=== PATIENT | female | born 1985 | race Caucasian/White ===

== ENCOUNTER 2018-07-21 12:20 | Observation (INO) | payer BC ==
--- NOTE | 2018-07-21 12:30 | EDM.PDOC ---
ED HPI GENERAL MEDICAL PROBLEM - General Chief Complaint: Genitourinary Problem Stated Complaint: UTI Time Seen by Provider: 07/21/18 12:21 Source of Information: Reports: Patient History Limitations: Reports: No Limitations - History of Present Illness INITIAL COMMENTS - FREE TEXT/NARRATIVE: HISTORY AND PHYSICAL: History of present illness: Patient is a 33-year-old female who presents to the emergency room with complaints of right flank pain and dysuria. She was seen by Myla Ramey on 07/18/18 for a routine OB evaluation. Patient is 21 weeks, 4 days gestation. She did have routine lab work along with an ultrasound. She states during this time she was told she had a urinary tract infection. 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 Last night she did have increased dysuria and low back pain. Woke up this morning with increased pain to right flank, dysuria, and nausea. She denies any fever, chills, chest pain, shortness of breath or cough. Denies any abdominal pain/pelvic pain, vaginal bleeding or discharge. Denies any vomiting, diarrhea, constipation. , P: 6. Vaginal Deliveries Review of systems: As per history of present illness and below otherwise all systems reviewed and negative. Past medical history: As per history of present illness and as reviewed below otherwise noncontributory. Surgical history: As per history of present illness and as reviewed below otherwise noncontributory. Social history: See social history for further information Family history: As per history of present illness and as reviewed below otherwise noncontributory. Physical exam: General: Well-developed and well-nourished 33-year-old female. Alert and oriented. Nontoxic appearing and in no acute distress. HEENT: Atraumatic, normocephalic, pupils equal and reactive bilaterally, negative for conjunctival pallor or scleral icterus, mucous membranes moist, TMs normal bilaterally, throat clear, neck supple, nontender, trachea midline. No drooling or trismus noted. No meningeal signs. No hot potato voice noted. Lungs: Clear to auscultation, breath sounds equal bilaterally, chest nontender. Heart: S1S2, regular rate and rhythm without overt murmur Abdomen: Soft, abdomen, nontender. No RLQ tenderness or rebound tenderness. Negative for masses or hepatosplenomegaly. Mild right sided costovertebral tenderness. Pelvis: Stable nontender. Genitourinary: Deferred. Rectal: Deferred. Skin: Intact, warm, dry. No lesions or rashes noted. Extremities: Atraumatic, negative for cords or calf pain. Neurovascular unremarkable. Neuro: Awake, alert, oriented. Cranial nerves II through XII unremarkable. Cerebellum unremarkable. Motor and sensory unremarkable throughout. Exam nonfocal. Notes: Ultrasound on 07/18/2018: Single active IUP with transverse fetus. No abnormalities were identified. Current FHT: 160-170's. Vital signs stable. OB has come down to evaluate patient ; per their protocol. 1245: Myla Ramey was consulted on this case. I did tell her about the patient's presentation and my concern of maybe a possible early pyelonephritis that she does have pain to the right flank and her diagnosis of UTI. We'll give her Rocephin 1 g and a Percocet, with Myla Ramey's approval. Patient is aware and agreeable as well. Lab results are pending. Patient does have an elevated white count, she states she does feel somewhat improved after the IV fluids and Rocephin. Concerned of her generalized headache , rates 3 out of 10. Ultrasound shows mild to moderate right hydronephrosis. No obstructing stones are visualized. Left kidney is unremarkable. Appendix is not visualized, but there is no fluid collection in the right lower quadrant. She also has no right lower quadrant tenderness with palpation nor rebound tenderness. Dr Patel was consulted on this patient, he declines taking this patient and would like OBGYN to manage this patient's care. Myla Ramey was updated on this patient, she is agreeable to observing this patient on [facility] for further evaluation and management. She states she will consult Dr. Antonia lopez cool also be involved in the patient's care. Patient is agreeable to staying overnight for further IV fluids and antibiotics. She offers no current complaints at this time. Vital signs are stable. Diagnostics: CBC, CMP, UA, Limited US Therapeutics: IV fluids, Zofran, Rocephin IV, Percocet Impression: Right Pyelonephritis, 2nd trimester Headache Plan: Observation admission to Med/Surg Definitive disposition and diagnosis as appropriate pending reevaluation and review of above. Right back Pain Score (Numeric/FACES): 10 - Related Data Allergies Allergy/AdvReac Type Severity Reaction Status Date / Time No Known Allergies Allergy Verified 07/21/18 12:38 Home Meds: Home Meds . [No Known Home Meds] 07/21/18 [History] ED ROS GENERAL - Review of Systems Review Of Systems: ROS reveals no pertinent complaints other than HPI. ED EXAM, RENAL/ - Physical Exam Exam: See Below (See dictation) Course - Vital Signs Last Recorded V/S: Last Vital Signs Temp 98.3 F 07/21/18 12:38 Pulse 114 H 07/21/18 12:38 Resp 18 07/21/18 12:38 BP 129/70 07/21/18 12:38 Pulse Ox 98 07/21/18 12:38 - Orders/Labs/Meds Orders: Active Orders 24 hr Category Date Time Status Admission Status [Patient Status] [ADT] Stat ADT 07/21/18 15:07 Active Sodium Chloride 0.9% [Normal Saline] 1,000 ml Med 07/21/18 15:09 Active IV STAT Medication Orders Sodium Chloride (Normal Saline) 1,000 mls @ 125 mls/hr IV STAT ONE Stop: 07/21/18 23:08 Labs: Laboratory Tests 07/21/18 07/21/18 07/21/18 Range/Units 12:42 12:42 12:42 WBC 17.70 H (4.0-11.0) K/uL RBC 4.26 L (4.30-5.90) M/uL Hgb 12.9 (12.0-16.0) g/dL Hct 38.2 (36.0-46.0) % MCV 89.7 (80.0-98.0) fL MCH 30.3 (27.0-32.0) pg MCHC 33.8 (31.0-37.0) g/dL RDW Std Deviation 43.2 (28.0-62.0) fl RDW Coeff of Berta 13 (11.0-15.0) % Plt Count 325 (150-400) K/uL MPV 9.20 (7.40-12.00) fL Neut % (Auto) 81.7 H (48.0-80.0) % Lymph % (Auto) 10.6 L (16.0-40.0) % [place] % (Auto) 7.5 (0.0-15.0) % Eos % (Auto) 0.1 (0.0-7.0) % Baso % (Auto) 0.1 (0.0-1.5) % Neut # (Auto) 14.5 H (1.4-5.7) K/uL Lymph # (Auto) 1.9 (0.6-2.4) K/uL [place] # (Auto) 1.3 H (0.0-0.8) K/uL Eos # (Auto) 0.0 (0.0-0.7) K/uL Baso # (Auto) 0.0 (0.0-0.1) K/uL Nucleated RBC % 0.0 /100WBC Nucleated RBCs # 0 K/uL Sodium 135 L (136-145) mmol/L Potassium 3.6 (3.5-5.1) mmol/L Chloride 100 (98-107) mmol/L Carbon Dioxide 23.7 (21.0-32.0) mmol/L BUN 10 (7.0-18.0) mg/dL Creatinine 0.6 (0.6-1.0) mg/dL Est Cr Clr Drug Dosing 124.85 mL/min Estimated GFR (MDRD) > 60.0 ml/min Glucose 89 (74-106) mg/dL Calcium 10.1 (8.5-10.1) mg/dL Total Bilirubin 0.5 (0.2-1.0) mg/dL AST 8 L (15-37) IU/L ALT 20 (14-63) IU/L Alkaline Phosphatase 111 (46-116) U/L Total Protein 8.2 (6.4-8.2) g/dL Albumin 2.9 L (3.4-5.0) g/dL Globulin 5.3 H (2.6-4.0) g/dL Albumin/Globulin Ratio 0.6 L (0.9-1.6) Urine Color YELLOW Urine Appearance CLEAR Urine pH 6.0 (5.0-8.0) Ur Specific [place] 1.010 (1.001-1.035) Urine Protein NEGATIVE (NEGATIVE) mg/dL Urine Glucose (UA) NEGATIVE (NEGATIVE) mg/dL Urine Ketones NEGATIVE (NEGATIVE) mg/dL Urine Occult Blood TRACE-INTACT H (NEGATIVE) Urine Nitrite POSITIVE H (NEGATIVE) Urine Bilirubin NEGATIVE (NEGATIVE) Urine Urobilinogen 0.2 (<2.0) EU/dL Ur Leukocyte Esterase SMALL H (NEGATIVE) Urine RBC 0-2 (0-2/HPF) Urine WBC 3-6 (0-5/HPF) Ur Epithelial Cells FEW (NONE-FEW) Urine Bacteria FEW (NEGATIVE) Meds: Medications Generic Name Dose Route Start Last Admin Trade Name Freq PRN Reason Stop Dose Admin Sodium Chloride 1,000 mls @ 125 mls/hr 07/21/18 15:09 Normal Saline IV 07/21/18 23:08 STAT ONE Discontinued Medications Generic Name Dose Route Start Last Admin Trade Name Freq PRN Reason Stop Dose Admin Acetaminophen 500 mg 07/21/18 14:57 Tylenol Extra Strength PO 07/21/18 14:58 ONETIME ONE Sodium Chloride 1,000 mls @ 999 mls/hr 07/21/18 12:32 07/21/18 12:55 Normal Saline IV 07/21/18 13:32 999 mls/hr STAT ONE Administration Ceftriaxone Sodium/Dextrose 1 50 mls @ 100 mls/hr 07/21/18 12:44 07/21/18 13: 07 gm/ Premix IV 07/21/18 13:13 100 mls/hr ONETIME ONE Administration Sodium Chloride 500 mls @ 999 mls/hr 07/21/18 15:00 Normal Saline IV STAT SALVATORE Ondansetron HCl 4 mg 07/21/18 12:38 07/21/18 12:56 Zofran IVPUSH 07/21/18 12:39 4 mg ONETIME ONE Administration Oxycodone/Acetaminophen 1 tab 07/21/18 12:44 07/21/18 13:07 Percocet 325-5 Mg PO 07/21/18 12:45 1 tab ONETIME ONE Administration Departure - Departure Time of Disposition: 15:21 Disposition: Refer to Observation Clinical Impression: Pyelonephritis affecting in second trimester Headache Qualifiers: Headache type: unspecified Headache chronicity pattern: acute headache Intractability: not intractable Qualified Code(s): R51 - Headache - Discharge Information Referrals: PCP,Unknown [Primary Care Provider] - Forms: ED Department Discharge - My Orders Last 24 Hours: My Active Orders 07/21/18 15:07 Admission Status [Patient Status] [ADT] Stat 07/21/18 15:09 Sodium Chloride 0.9% [Normal Saline] 1,000 ml IV STAT - Assessment/Plan Last 24 Hours: My Active Orders 07/21/18 15:07 Admission Status [Patient Status] [ADT] Stat 07/21/18 15:09 Sodium Chloride 0.9% [Normal Saline] 1,000 ml IV STAT
[2018-07-21] MEDS ORDERED: Sodium Chloride 0.9% 1,000 ML IV ONE ×2 (12:32→15:09)
[2018-07-21] MEDS ORDERED: Ondansetron 4 MG/2 ML SDV IVPUSH ONE (12:38)
[2018-07-21] MEDS ORDERED: cefTRIAXone 1 GM in Premix Bag 1 BAG IV ONE (12:44)
[2018-07-21] MEDS ORDERED: Acetaminophen/oxyCODONE 325-5 MG Tab PO ONE (12:44)
[2018-07-21 13:58] LABS: CHLORIDE,CL 100 mmol/L (98-107); SODIUM,NA 135 mmol/L (136-145)
--- NOTE | 2018-07-21 14:55 | US ---
CLINICAL HISTORY: Right flank pain right lower quadrant pain 21 weeks FINDINGS: The patient`s liver is of normal size and has uniform echogenicity. There is a normal appearance of the hepatic IVC and proximal abdominal aorta. There is no evidence of ascites. The gallbladder is of normal size and there is no evidence of intraluminal stones or sludge. The gallbladder wall measures 2 mm in thickness. The common bile duct is of normal size and measures 3 mm in diameter at the level of the denzel hepatis. The pancreas appears normal.The right kidney measures 13.2 cm in length. Left kidney measures 10.7 cm. Mild to moderate right-sided hydronephrosis. No obstructing stones are visualized. Left kidney appears unremarkable. No hydronephrosis. Left ureteral jet visualized. Right ureter is not visualized. Appendix is not seen. No fluid collections in the right lower quadrant. IMPRESSION: 1. Mild to moderate right hydronephrosis. No obstructing stones are visualized. Left kidney is unremarkable. Small left ureteral jet visualized right ureteral jet is not visualized 2. No fluid collections visualized in right lower quadrant. Appendix is not visualized. Dictated by Sarahi Olivas MD @ Jul 21 2018 2:48PM Signed by Dr. Sarahi Olivas @ Jul 21 2018 2:53PM
[2018-07-21] MEDS ORDERED: Acetaminophen 500 MG Tab PO ONE (14:57)
[2018-07-21] MEDS ORDERED: Sodium Chloride 0.9% 500 ML IV SCH (15:00)
[2018-07-21] MEDS ORDERED: Nalbuphine 10 MG/1 ML Vial IVPUSH PRN (16:02)
[2018-07-21] MEDS ORDERED: hydrOXYzine Pamoate 25 MG Cap PO PRN (16:04)
--- NOTE | 2018-07-21 20:09 | PCM.HP ---
H&P History of Present Illness - General Date of Service: 07/21/18 Admit Problem/Dx: Admission Diagnosis/Problem Admission Diagnosis/Problem Pyelonephritis affecting in second trimester 33yo EDC 3/7wks, came in due to left flank pain. Noted on Wed that she has a UTI but she had not started the antibiotics. . Source of Information: Patient History Limitations: Reports: No Limitations - History of Present Illness Onset of Symptoms: Reports: Sudden Symptom Onset Date: 07/20/18 Location: Reports: Other (right flank) Quality: Reports: Burning Severity: Moderate Improves with: Reports: None Worsens with: Reports: None Associated Symptoms: Reports: Cough, Other (dysuria) Right back Pain Score (Numeric/FACES): 9 - Related Data Allergies/Adverse Reactions: Allergies Allergy/AdvReac Type Severity Reaction Status Date / Time No Known Allergies Allergy Verified 07/21/18 12:38 Home Medications: Home Meds . 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: - Infectious Disease History Infectious Disease History: Reports: None - Past Surgical History Female Surgical History: Reports: None Social & Family History - Family History Family Medical History: Noncontributory - Tobacco Use Smoking Status *Q: Never Smoker - Caffeine Use Caffeine Use: Reports: Coffee - Recreational Drug Use Recreational Drug Use: No H&P Review of Systems - Review of Systems: Review Of Systems: See Below General: Reports: No Symptoms HEENT: Reports: No Symptoms Pulmonary: Reports: No Symptoms Cardiovascular: Reports: No Symptoms Gastrointestinal: Reports: No Symptoms Genitourinary: Reports: Dysuria, Flank Pain (right side) Musculoskeletal: Reports: No Symptoms Skin: Reports: No Symptoms Psychiatric: Reports: No Symptoms Neurological: Reports: Headache Hematologic/Lymphatic: Reports: No Symptoms Immunologic: Reports: No Symptoms Exam - Exam Exam: See Below - Vital Signs Vital Signs: Last Vital Signs Temp 37.9 C 07/21/18 16:04 Pulse 103 H 07/21/18 16:00 Resp 18 07/21/18 16:00 BP 111/56 L 07/21/18 16:00 Pulse Ox 100 07/21/18 16:00 Weight: 61.28 kg - Exam General: Alert, Oriented, Cooperative, Mild Distress HEENT: Hearing Intact Lungs: Clear to Auscultation, Normal Respiratory Effort Cardiovascular: Regular Rate, Regular Rhythm, Normal S1, Normal S2 GI/Abdominal Exam: Soft, Non-Tender (Female) Exam: Deferred Rectal (Female) Exam: Deferred Back Exam: Normal Inspection, Full Range of Motion, CVA Tenderness (R) Extremities: Normal Inspection, Normal Range of Motion, Non-Tender, No Pedal Edema, Normal Capillary Refill Skin: Warm, Dry, Intact Neurological: Cranial Nerves Intact, Reflexes Equal Bilateral, Normal Speech, Normal Tone Neuro Extensive - Mental Status: Alert, Oriented x3, Normal Mood/Affect, Normal Cognition, Memory Intact Psychiatric: Alert, Normal Affect, Normal Mood - Patient Data Lab Results Last 24 hrs: Laboratory Results - last 24 hr 07/21/18 07/21/18 07/21/18 Range/Units 12:42 12:42 12:42 WBC 17.70 H (4.0-11.0) K/uL RBC 4.26 L (4.30-5.90) M/uL Hgb 12.9 (12.0-16.0) g/dL Hct 38.2 (36.0-46.0) % MCV 89.7 (80.0-98.0) fL MCH 30.3 (27.0-32.0) pg MCHC 33.8 (31.0-37.0) g/dL RDW Std Deviation 43.2 (28.0-62.0) fl RDW Coeff of Berta 13 (11.0-15.0) % Plt Count 325 (150-400) K/uL MPV 9.20 (7.40-12.00) fL Neut % (Auto) 81.7 H (48.0-80.0) % Lymph % (Auto) 10.6 L (16.0-40.0) % [place] % (Auto) 7.5 (0.0-15.0) % Eos % (Auto) 0.1 (0.0-7.0) % Baso % (Auto) 0.1 (0.0-1.5) % Neut # (Auto) 14.5 H (1.4-5.7) K/uL Lymph # (Auto) 1.9 (0.6-2.4) K/uL [place] # (Auto) 1.3 H (0.0-0.8) K/uL Eos # (Auto) 0.0 (0.0-0.7) K/uL Baso # (Auto) 0.0 (0.0-0.1) K/uL Nucleated RBC % 0.0 /100WBC Nucleated RBCs # 0 K/uL Sodium 135 L (136-145) mmol/L Potassium 3.6 (3.5-5.1) mmol/L Chloride 100 (98-107) mmol/L Carbon Dioxide 23.7 (21.0-32.0) mmol/L BUN 10 (7.0-18.0) mg/dL Creatinine 0.6 (0.6-1.0) mg/dL Est Cr Clr Drug Dosing 124.85 mL/min Estimated GFR (MDRD) > 60.0 ml/min Glucose 89 (74-106) mg/dL Calcium 10.1 (8.5-10.1) mg/dL Total Bilirubin 0.5 (0.2-1.0) mg/dL AST 8 L (15-37) IU/L ALT 20 (14-63) IU/L Alkaline Phosphatase 111 (46-116) U/L Total Protein 8.2 (6.4-8.2) g/dL Albumin 2.9 L (3.4-5.0) g/dL Globulin 5.3 H (2.6-4.0) g/dL Albumin/Globulin Ratio 0.6 L (0.9-1.6) Urine Color YELLOW Urine Appearance CLEAR Urine pH 6.0 (5.0-8.0) Ur Specific [place] 1.010 (1.001-1.035) Urine Protein NEGATIVE (NEGATIVE) mg/dL Urine Glucose (UA) NEGATIVE (NEGATIVE) mg/dL Urine Ketones NEGATIVE (NEGATIVE) mg/dL Urine Occult Blood TRACE-INTACT H (NEGATIVE) Urine Nitrite POSITIVE H (NEGATIVE) Urine Bilirubin NEGATIVE (NEGATIVE) Urine Urobilinogen 0.2 (<2.0) EU/dL Ur Leukocyte Esterase SMALL H (NEGATIVE) Urine RBC 0-2 (0-2/HPF) Urine WBC 3-6 (0-5/HPF) Ur Epithelial Cells FEW (NONE-FEW) Urine Bacteria FEW (NEGATIVE) Result Diagrams: 07/21/18 12:42 07/21/18 12:42 - Problem List (1) Headache SNOMED Code(s): 56577092 ICD Code: R51 - HEADACHE Status: Acute Priority: High Current Visit: Yes Qualifiers: Headache type: unspecified Headache chronicity pattern: acute headache Intractability: not intractable Qualified Code(s): R51 - Headache (2) Pyelonephritis affecting in second trimester SNOMED Code(s): 85697693, 88770455, [id number], 997138632 ICD Code: O23.02 - INFECTIONS OF KIDNEY IN , SECOND TRIMESTER Status: Acute Priority: High Current Visit: Yes Problem List Initiated/Reviewed/Updated: Yes Orders Last 24hrs: Active Orders 24 hr Category Date Time Status Admission Status [Patient Status] [ADT] Stat ADT 07/21/18 15:07 Active Communication Order [RC] ROUTINE Care 07/21/18 16:04 Active Heart Tones [ Heart Rate] [RC] Q12HR Care 07/21/18 20:00 Active Up ad Annabelle [RC] ASDIRECTED Care 07/21/18 16:00 Active Regular Diet [DIET] Diet 07/21/18 Dinner Active CBC WITH AUTO DIFF [HEME] Routine Lab 07/22/18 05:11 Ordered Acetaminophen [Tylenol Extra Strength] Med 07/21/18 16:03 Active 1,000 mg PO Q4H PRN Nalbuphine [Nubain] Med 07/21/18 16:02 Active 1 - 2 mg IVPUSH Q1H PRN Sodium Chloride 0.9% [Normal Saline] 1,000 ml Med 07/21/18 15:09 Active IV STAT hydrOXYzine pamoate [Vistaril] Med 07/21/18 16:04 Active 50 mg PO BEDTIME PRN Medication Orders Acetaminophen (Tylenol Extra Strength) 1,000 mg PO Q4H PRN PRN Reason: Pain Hydroxyzine Pamoate (Vistaril) 50 mg PO BEDTIME PRN PRN Reason: Sleep Sodium Chloride (Normal Saline) 1,000 mls @ 125 mls/hr IV STAT ONE Stop: 07/21/18 23:08 Last Admin: 07/21/18 15:18 Dose: 125 mls/hr Nalbuphine HCl (Nubain) 1 - 2 mg IVPUSH Q1H PRN PRN Reason: Pain Assessment/Plan Comment:: A: 33yo EDC 3/7wks, came in due to left flank pain. Noted on Mon that she has a UTI but she had not started the antibiotics. P: Admit for ops, Pain mngt for headach, start levofloxaxin q24 x10 days. Repeat labs in AM.
[2018-07-21] MEDS: Levofloxacin 250 MG Tab PO SCH (20:55)
[2018-07-21] MEDS: Acetaminophen 500 MG Tab PO PRN (23:05)
[2018-07-22] MEDS: Acetaminophen 500 MG Tab PO PRN ×3 (09:29→23:09)
--- NOTE | 2018-07-22 09:37 | PCM.PN ---
- General Info Date of Service: 07/22/18 Admission Dx/Problem (Free Text): Admission Diagnosis/Problem Admission Diagnosis/Problem Pyelonephritis affecting in second trimester 33yo EDC 3/7wks, came in due to left flank pain. Noted on Wed that she has a UTI but she had not started the antibiotics. . Functional Status: Reports: Pain Controlled, Tolerating Diet, Ambulating, Urinating - Review of Systems General: Reports: No Symptoms HEENT: Reports: No Symptoms Pulmonary: Reports: No Symptoms Cardiovascular: Reports: No Symptoms Gastrointestinal: Reports: No Symptoms Genitourinary: Reports: No Symptoms Musculoskeletal: Reports: Back Pain Skin: Reports: No Symptoms Neurological: Reports: No Symptoms Psychiatric: Reports: No Symptoms - Patient Data Vitals - Most Recent: Last Vital Signs Temp 37.0 C 07/22/18 08:00 Pulse 113 H 07/22/18 08:00 Resp 16 07/22/18 08:00 BP 110/55 L 07/22/18 08:00 Pulse Ox 95 07/22/18 08:00 Weight - Most Recent: 61.28 kg I&O - Last 24 Hours: Intake & Output 07/21/18 07/22/18 07/22/18 22:59 06:59 14:59 Intake Total 1699 Output Total 1700 Balance -1 Lab Results Last 24 Hours: Laboratory Results - last 24 hr 07/21/18 07/21/18 07/21/18 Range/Units 12:42 12:42 12:42 WBC 17.70 H (4.0-11.0) K/uL RBC 4.26 L (4.30-5.90) M/uL Hgb 12.9 (12.0-16.0) g/dL Hct 38.2 (36.0-46.0) % MCV 89.7 (80.0-98.0) fL MCH 30.3 (27.0-32.0) pg MCHC 33.8 (31.0-37.0) g/dL RDW Std Deviation 43.2 (28.0-62.0) fl RDW Coeff of Berta 13 (11.0-15.0) % Plt Count 325 (150-400) K/uL MPV 9.20 (7.40-12.00) fL Neut % (Auto) 81.7 H (48.0-80.0) % Lymph % (Auto) 10.6 L (16.0-40.0) % [place] % (Auto) 7.5 (0.0-15.0) % Eos % (Auto) 0.1 (0.0-7.0) % Baso % (Auto) 0.1 (0.0-1.5) % Neut # (Auto) 14.5 H (1.4-5.7) K/uL Lymph # (Auto) 1.9 (0.6-2.4) K/uL [place] # (Auto) 1.3 H (0.0-0.8) K/uL Eos # (Auto) 0.0 (0.0-0.7) K/uL Baso # (Auto) 0.0 (0.0-0.1) K/uL Nucleated RBC % 0.0 /100WBC Nucleated RBCs # 0 K/uL Lactate (0.20-2.00) mmol/L Sodium 135 L (136-145) mmol/L Potassium 3.6 (3.5-5.1) mmol/L Chloride 100 (98-107) mmol/L Carbon Dioxide 23.7 (21.0-32.0) mmol/L BUN 10 (7.0-18.0) mg/dL Creatinine 0.6 (0.6-1.0) mg/dL Est Cr Clr Drug Dosing 124.85 mL/min Estimated GFR (MDRD) > 60.0 ml/min Glucose 89 (74-106) mg/dL Calcium 10.1 (8.5-10.1) mg/dL Total Bilirubin 0.5 (0.2-1.0) mg/dL AST 8 L (15-37) IU/L ALT 20 (14-63) IU/L Alkaline Phosphatase 111 (46-116) U/L Total Protein 8.2 (6.4-8.2) g/dL Albumin 2.9 L (3.4-5.0) g/dL Globulin 5.3 H (2.6-4.0) g/dL Albumin/Globulin Ratio 0.6 L (0.9-1.6) Urine Color YELLOW Urine Appearance CLEAR Urine pH 6.0 (5.0-8.0) Ur Specific [place] 1.010 (1.001-1.035) Urine Protein NEGATIVE (NEGATIVE) mg/dL Urine Glucose (UA) NEGATIVE (NEGATIVE) mg/dL Urine Ketones NEGATIVE (NEGATIVE) mg/dL Urine Occult Blood TRACE-INTACT H (NEGATIVE) Urine Nitrite POSITIVE H (NEGATIVE) Urine Bilirubin NEGATIVE (NEGATIVE) Urine Urobilinogen 0.2 (<2.0) EU/dL Ur Leukocyte Esterase SMALL H (NEGATIVE) Urine RBC 0-2 (0-2/HPF) Urine WBC 3-6 (0-5/HPF) Ur Epithelial Cells FEW (NONE-FEW) Urine Bacteria FEW (NEGATIVE) 07/21/18 07/22/18 Range/Units 20:40 06:01 WBC 18.12 H (4.0-11.0) K/uL RBC 3.64 L (4.30-5.90) M/uL Hgb 10.9 L (12.0-16.0) g/dL Hct 33.0 L (36.0-46.0) % MCV 90.7 (80.0-98.0) fL MCH 29.9 (27.0-32.0) pg MCHC 33.0 (31.0-37.0) g/dL RDW Std Deviation 44.1 (28.0-62.0) fl RDW Coeff of Berta 13 (11.0-15.0) % Plt Count 252 (150-400) K/uL MPV 9.10 (7.40-12.00) fL Neut % (Auto) 81.9 H (48.0-80.0) % Lymph % (Auto) 9.8 L (16.0-40.0) % [place] % (Auto) 8.1 (0.0-15.0) % Eos % (Auto) 0.1 (0.0-7.0) % Baso % (Auto) 0.1 (0.0-1.5) % Neut # (Auto) 14.8 H (1.4-5.7) K/uL Lymph # (Auto) 1.8 (0.6-2.4) K/uL [place] # (Auto) 1.5 H (0.0-0.8) K/uL Eos # (Auto) 0.0 (0.0-0.7) K/uL Baso # (Auto) 0.0 (0.0-0.1) K/uL Nucleated RBC % 0.0 /100WBC Nucleated RBCs # 0 K/uL Lactate 0.6 (0.20-2.00) mmol/L Sodium (136-145) mmol/L Potassium (3.5-5.1) mmol/L Chloride (98-107) mmol/L Carbon Dioxide (21.0-32.0) mmol/L BUN (7.0-18.0) mg/dL Creatinine (0.6-1.0) mg/dL Est Cr Clr Drug Dosing mL/min Estimated GFR (MDRD) ml/min Glucose (74-106) mg/dL Calcium (8.5-10.1) mg/dL Total Bilirubin (0.2-1.0) mg/dL AST (15-37) IU/L ALT (14-63) IU/L Alkaline Phosphatase (46-116) U/L Total Protein (6.4-8.2) g/dL Albumin (3.4-5.0) g/dL Globulin (2.6-4.0) g/dL Albumin/Globulin Ratio (0.9-1.6) Urine Color Urine Appearance Urine pH (5.0-8.0) Ur Specific [place] (1.001-1.035) Urine Protein (NEGATIVE) mg/dL Urine Glucose (UA) (NEGATIVE) mg/dL Urine Ketones (NEGATIVE) mg/dL Urine Occult Blood (NEGATIVE) Urine Nitrite (NEGATIVE) Urine Bilirubin (NEGATIVE) Urine Urobilinogen (<2.0) EU/dL Ur Leukocyte Esterase (NEGATIVE) Urine RBC (0-2/HPF) Urine WBC (0-5/HPF) Ur Epithelial Cells (NONE-FEW) Urine Bacteria (NEGATIVE) Med Orders - Current: Current Medications Acetaminophen (Tylenol Extra Strength) 1,000 mg PO Q4H PRN PRN Reason: Pain Last Admin: 07/22/18 09:29 Dose: 1,000 mg Hydroxyzine Pamoate (Vistaril) 50 mg PO BEDTIME PRN PRN Reason: Sleep Last Admin: 07/22/18 01:53 Dose: 50 mg Levofloxacin (Levaquin) 250 mg PO Q24H SALVATORE Last Admin: 07/21/18 20:55 Dose: 250 mg Nalbuphine HCl (Nubain) 1 - 2 mg IVPUSH Q1H PRN PRN Reason: Pain Last Admin: 07/21/18 20:27 Dose: 1 mg Discontinued Medications Acetaminophen (Tylenol Extra Strength) 500 mg PO ONETIME ONE Stop: 07/21/18 14:58 Last Admin: 07/21/18 15:17 Dose: 500 mg Sodium Chloride (Normal Saline) 1,000 mls @ 999 mls/hr IV STAT ONE Stop: 07/21/18 13:32 Last Admin: 07/21/18 12:55 Dose: 999 mls/hr Ceftriaxone Sodium/Dextrose 1 (gm/ Premix) 50 mls @ 100 mls/hr IV ONETIME ONE Stop: 07/21/18 13:13 Last Admin: 07/21/18 13:07 Dose: 100 mls/hr Sodium Chloride (Normal Saline) 500 mls @ 999 mls/hr IV STAT SALVATORE Sodium Chloride (Normal Saline) 1,000 mls @ 125 mls/hr IV STAT ONE Stop: 07/21/18 23:08 Last Admin: 07/21/18 15:18 Dose: 125 mls/hr Ondansetron HCl (Zofran) 4 mg IVPUSH ONETIME ONE Stop: 07/21/18 12:39 Last Admin: 07/21/18 12:56 Dose: 4 mg Oxycodone/Acetaminophen (Percocet 325-5 Mg) 1 tab PO ONETIME ONE Stop: 07/21/18 12:45 Last Admin: 07/21/18 13:07 Dose: 1 tab - Exam General: Alert, Oriented, Cooperative, No Acute Distress Lungs: Clear to Auscultation, Normal Respiratory Effort. No: Decreased Breath Sounds Cardiovascular: Regular Rate, Regular Rhythm, No Murmurs. No: Irregular Rhythm , Bradycardia, Tachycardia GI/Abdominal Exam: Normal Bowel Sounds, Soft, Non-Tender (Female) Exam: Deferred, Other (States good movement). No: Cervical Fluid, Vaginal Bleeding Back Exam: Normal Inspection, Full Range of Motion, CVA Tenderness (R) Extremities: Normal Inspection, Normal Range of Motion, Non-Tender, No Pedal Edema, Normal Capillary Refill Skin: Warm, Dry, Intact Neurological: No New Focal Deficit, Normal Speech, Normal Tone, Strength Equal Bilateral Psy/Mental Status: Alert, Normal Affect, Normal Mood - Problem List & Annotations (1) Headache SNOMED Code(s): 51254734 Code(s): R51 - HEADACHE Status: Acute Priority: High Current Visit: Yes Qualifiers: Headache type: unspecified Headache chronicity pattern: acute headache Intractability: not intractable Qualified Code(s): R51 - Headache (2) Pyelonephritis affecting in second trimester SNOMED Code(s): 56748310, 52939882, 751956134, 862913850 Code(s): O23.02 - INFECTIONS OF KIDNEY IN , SECOND TRIMESTER Status: Acute Priority: High Current Visit: Yes - Problem List Review Problem List Initiated/Reviewed/Updated: Yes - My Orders Last 24 Hours: My Active Orders 07/21/18 16:00 Up ad Annabelle [RC] ASDIRECTED 07/21/18 16:02 Nalbuphine [Nubain] 1 - 2 mg IVPUSH Q1H PRN 07/21/18 16:03 Acetaminophen [Tylenol Extra Strength] 1,000 mg PO Q4H PRN 07/21/18 16:04 Communication Order [RC] ROUTINE hydrOXYzine pamoate [Vistaril] 50 mg PO BEDTIME PRN 07/21/18 20:00 Heart Tones [ Heart Rate] [RC] Q12HR 07/21/18 20:30 levoFLOXacin [Levaquin] 250 mg PO Q24H 07/21/18 Dinner Regular Diet [DIET] - Plan Plan:: A: 33yo EDC 11/28/201821 3/7wks, came in due to left flank pain. Noted on Mon that she has a UTI but she had not started the antibiotics. P: Admit for ops, Pain mngt for headach, start levofloxaxin q24 x10 days. Repeat labs in AM. Day 1 ops A: VSS, AF, HHR, LS clear bilat, continued Rt CVA tenderness, +FM. CBC noted WBC 18.12 up from 17.7 yesterday. Lactic acid normal. P: Continue antibiotic and rest. May shower.
[2018-07-22] MEDS: Levofloxacin 250 MG Tab PO SCH (20:34)
[2018-07-22] MEDS ORDERED: Famotidine 20 MG Tab PO PRN (22:47)
--- NOTE | 2018-07-23 08:25 | PCM.DCSUM1 ---
Discharge Summary - Hospital Course Free Text/Narrative:: Discharge home with self care. Take antibiotics as directed. Follow up at next moustapha appointment or sooner if needed. Diagnosis: Stroke: No - Discharge Data Discharge Date: 07/23/18 Discharge Disposition: Home, Self-Care 01 Condition: Stable - Discharge Diagnosis/Problem(s) (1) Headache SNOMED Code(s): 44180400 ICD Code: R51 - HEADACHE Status: Acute Priority: High Current Visit: Yes Qualifiers: Headache type: unspecified Headache chronicity pattern: acute headache Intractability: not intractable Qualified Code(s): R51 - Headache (2) Pyelonephritis affecting in second trimester SNOMED Code(s): 17679199, 88684526, 357322055, 061119775 ICD Code: O23.02 - INFECTIONS OF KIDNEY IN , SECOND TRIMESTER Status: Acute Priority: High Current Visit: Yes - Patient Instructions Diet: Usual Diet as Tolerated Activity: As Tolerated, No Strenuous Activities, Rest and Relax Today Driving: May Drive Today Showering/Bathing: May Shower Notify Provider of: Fever, Increased Pain, Swelling and Redness, Nausea and/or Vomiting Other/Special Instructions: Discharge home with self care. Take antibiotics as directed. Follow up at next moustapha appointment or sooner if needed. - Discharge Plan *PRESCRIPTION DRUG MONITORING PROGRAM REVIEWED*: Not Applicable *COPY OF PRESCRIPTION DRUG MONITORING REPORT IN PATIENT MIRIAM: Not Applicable Home Medications: Home Meds . [No Known Home Meds] 07/21/18 [History] Oxygen Therapy Mode: Room Air Forms: ED Department Discharge Referrals: PCP,Unknown [Primary Care Provider] - - Discharge Summary/Plan Comment DC Time >30 min.: Yes - General Info Date of Service: 07/23/18 Admission Dx/Problem (Free Text: Admission Diagnosis/Problem Admission Diagnosis/Problem Pyelonephritis affecting in second trimester 33yo EDC 11/28/201821 3/7wks, came in due to left flank pain. Noted on Mon that she has a UTI but she had not started the antibiotics. . Functional Status: Reports: Pain Controlled, Tolerating Diet, Ambulating, Urinating - Review of Systems General: Reports: No Symptoms HEENT: Reports: No Symptoms Pulmonary: Reports: No Symptoms Cardiovascular: Reports: No Symptoms Gastrointestinal: Reports: No Symptoms Genitourinary: Reports: No Symptoms Musculoskeletal: Reports: No Symptoms Skin: Reports: No Symptoms Neurological: Reports: No Symptoms Psychiatric: Reports: No Symptoms - Patient Data Vitals - Most Recent: Last Vital Signs Temp 36.2 C 07/23/18 04:00 Pulse 63 07/23/18 04:00 Resp 16 07/23/18 04:00 BP 96/54 L 07/23/18 04:00 Pulse Ox 96 07/23/18 04:00 Weight - Most Recent: 61.28 kg I&O - Last 24 hours: Intake & Output 07/22/18 07/23/18 07/23/18 22:59 06:59 14:59 Intake Total 2100 Output Total 1450 Balance 650 Lab Results - Last 24 hrs: Laboratory Results - last 24 hr 07/23/18 Range/Units 05:59 WBC 12.06 H (4.0-11.0) K/uL RBC 3.63 L (4.30-5.90) M/uL Hgb 10.7 L (12.0-16.0) g/dL Hct 33.0 L (36.0-46.0) % MCV 90.9 (80.0-98.0) fL MCH 29.5 (27.0-32.0) pg MCHC 32.4 (31.0-37.0) g/dL RDW Std Deviation 45.4 (28.0-62.0) fl RDW Coeff of Berta 14 (11.0-15.0) % Plt Count 291 (150-400) K/uL MPV 9.30 (7.40-12.00) fL Neut % (Auto) 69.3 (48.0-80.0) % Lymph % (Auto) 20.6 (16.0-40.0) % [place] % (Auto) 9.2 (0.0-15.0) % Eos % (Auto) 0.7 (0.0-7.0) % Baso % (Auto) 0.2 (0.0-1.5) % Neut # (Auto) 8.4 H (1.4-5.7) K/uL Lymph # (Auto) 2.5 H (0.6-2.4) K/uL [place] # (Auto) 1.1 H (0.0-0.8) K/uL Eos # (Auto) 0.1 (0.0-0.7) K/uL Baso # (Auto) 0.0 (0.0-0.1) K/uL Nucleated RBC % 0.0 /100WBC Nucleated RBCs # 0 K/uL Med Orders - Current: Current Medications Acetaminophen (Tylenol Extra Strength) 1,000 mg PO Q6H PRN PRN Reason: Pain Last Admin: 07/22/18 23:09 Dose: 1,000 mg Famotidine (Pepcid) 20 mg PO DAILY PRN PRN Reason: Heartburn Last Admin: 07/22/18 23:18 Dose: 20 mg Hydroxyzine Pamoate (Vistaril) 50 mg PO BEDTIME PRN PRN Reason: Sleep Last Admin: 07/22/18 01:53 Dose: 50 mg Levofloxacin (Levaquin) 250 mg PO Q24H MOUSTAPHA Last Admin: 07/22/18 20:34 Dose: 250 mg Nalbuphine HCl (Nubain) 1 - 2 mg IVPUSH Q1H PRN PRN Reason: Pain Last Admin: 07/21/18 20:27 Dose: 1 mg Discontinued Medications Acetaminophen (Tylenol Extra Strength) 500 mg PO ONETIME ONE Stop: 07/21/18 14:58 Last Admin: 07/21/18 15:17 Dose: 500 mg Acetaminophen (Tylenol Extra Strength) 1,000 mg PO Q4H PRN PRN Reason: Pain Last Admin: 07/22/18 09:29 Dose: 1,000 mg Sodium Chloride (Normal Saline) 1,000 mls @ 999 mls/hr IV STAT ONE Stop: 07/21/18 13:32 Last Admin: 07/21/18 12:55 Dose: 999 mls/hr Ceftriaxone Sodium/Dextrose 1 (gm/ Premix) 50 mls @ 100 mls/hr IV ONETIME ONE Stop: 07/21/18 13:13 Last Admin: 07/21/18 13:07 Dose: 100 mls/hr Sodium Chloride (Normal Saline) 500 mls @ 999 mls/hr IV STAT MOUSTAPHA Sodium Chloride (Normal Saline) 1,000 mls @ 125 mls/hr IV STAT ONE Stop: 07/21/18 23:08 Last Admin: 07/21/18 15:18 Dose: 125 mls/hr Ondansetron HCl (Zofran) 4 mg IVPUSH ONETIME ONE Stop: 07/21/18 12:39 Last Admin: 07/21/18 12:56 Dose: 4 mg Oxycodone/Acetaminophen (Percocet 325-5 Mg) 1 tab PO ONETIME ONE Stop: 07/21/18 12:45 Last Admin: 07/21/18 13:07 Dose: 1 tab - Exam General: Reports: Alert, Oriented, Cooperative, No Acute Distress Lungs: Reports: Clear to Auscultation, Normal Respiratory Effort Cardiovascular: Reports: Regular Rate, Regular Rhythm, No Murmurs GI/Abdominal Exam: Normal Bowel Sounds, Soft, Non-Tender. No: Guarding (Female) Exam: Deferred Rectal (Female) Exam: Deferred Back Exam: Reports: Normal Inspection, Full Range of Motion. Denies: CVA Tenderness (R) Extremities: Normal Inspection, Normal Range of Motion, Non-Tender, No Pedal Edema, Normal Capillary Refill Skin: Reports: Warm, Dry, Intact Neurological: Reports: No New Focal Deficit, Normal Speech, Normal Tone, Strength Equal Bilateral Psy/Mental Status: Reports: Alert, Normal Affect, Normal Mood
== END 2018-07-23 10:30 | disposition home or self-care (01) ==
LOC: MW.ED 12:20 → MW.MS 15:38
PROVIDERS: ADMIT Obstetrics & Gynecology; ATTEND Obstetrics & Gynecology
DX: O23.02 Infections of kidney in pregnancy, second trimester (principal); B96.20 Unspecified Escherichia coli [E. coli] as the cause of diseases classified elsewhere; N13.6 Pyonephrosis; O99.89 Other specified diseases and conditions complicating pregnancy, childbirth and the puerperium; R51 Headache; Z3A.21 21 weeks gestation of pregnancy
CPT/HCPCS: 36415; 76705; 80053; 81001; 83605; 85025; 96365; 96375; 99285; A9270; J0696; J2300; J2405; J7040; 96361; G0378

== ENCOUNTER 2018-11-26 10:16 | Inpatient (IN) | payer BC ==
[2018-11-26] MEDS ORDERED: Lidocaine 1% 50 ML MDV INJECT PRN (10:38)
[2018-11-26] MEDS ORDERED: Sodium Chloride 0.9% 2.5 ML Syringe FLUSH PRN (10:38)
[2018-11-26] MEDS ORDERED: Water For Irrigation,Sterile 1,000 ML Container IRR PRN (10:38)
[2018-11-26] MEDS ORDERED: Misoprostol 200 MCG Tab PO PRN (10:38)
[2018-11-26] MEDS ORDERED: Butorphanol 1 MG/ML SDV IVPUSH PRN (10:38)
[2018-11-26] MEDS ORDERED: Carboprost Tromethamine 250 MCG/1 ML Amp IM PRN (10:38)
[2018-11-26] MEDS ORDERED: Sodium Chloride 0.9% 10 ML SDV IV PRN (10:38)
[2018-11-26] MEDS ORDERED: Nalbuphine 10 MG/1 ML Vial IVPUSH PRN (10:38)
[2018-11-26] MEDS ORDERED: Sodium Chloride 0.9% 10 ML Syringe FLUSH PRN (10:38)
[2018-11-26] MEDS ORDERED: Methylergonovine 0.2 MG/1 ML Amp IM PRN (10:38)
[2018-11-26] MEDS ORDERED: Tranexamic Acid 1,000 MG in Sodium Chloride 0.9% 100 ML IV PRN (10:38)
[2018-11-26] MEDS ORDERED: Oxytocin/0.9 % Sodium Chloride 30 UNIT/500 ML BAG IV SCH (10:45)
[2018-11-26] MEDS ORDERED: Lactated Ringers 1,000 ML IV SCH (10:45)
--- NOTE | 2018-11-26 12:00 | PCM.LDHP ---
L&D History of Present Illness - General Date of Service: 11/26/18 Admit Problem/Dx: Patient Status Order with Admit Dx/Problem 11/26/18 10:38 Patient Status [ADT] Routine Admission Diagnosis/Problem Admission Diagnosis/Problem 11/26/18 11:56 33yo EDC 11/28/2018 39 5/7wks B+, RI, GBS neg, comes in Transition labor. Source of Information: Patient History Limitations: Reports: No Limitations - History of Present Illness Improves with: Reports: None Worsens with: Reports: None Associated Symptoms: Reports: N - Related Data Allergies/Adverse Reactions: Allergies Allergy/AdvReac Type Severity Reaction Status Date / Time No Known Allergies Allergy Verified 07/21/18 12:38 Home Medications: Home Meds Levofloxacin [Levaquin] 250 mg PO DAILY 8 Days #8 tablet 07/23/18 [Rx] Miconazole [Miconazole 2% Vaginal] 45 gm VAG BEDTIME 7 Days #1 tube 07/23/18 [Rx ] Past Medical History - Past Health History Medical/Surgical History: Denies Medical/Surgical History Other Gastrointestinal History: constipation with Other Genitourinary History: current UTI, pyelonephritis, flank pain [employer] History: Reports: - Infectious Disease History Infectious Disease History: Reports: None - Past Surgical History Female Surgical History: Reports: None Social & Family History - Family History Family Medical History: Noncontributory - Caffeine Use Caffeine Use: Reports: Coffee H&P Review of Systems - Review of Systems: Review Of Systems: See Below General: Reports: No Symptoms HEENT: Reports: No Symptoms Pulmonary: Reports: No Symptoms Cardiovascular: Reports: No Symptoms Gastrointestinal: Reports: No Symptoms Genitourinary: Reports: No Symptoms Musculoskeletal: Reports: No Symptoms Skin: Reports: No Symptoms Psychiatric: Reports: No Symptoms Neurological: Reports: No Symptoms Hematologic/Lymphatic: Reports: No Symptoms Immunologic: Reports: No Symptoms L&D Exam - Exam Exam: See Below - OB Specific Contraction Intensity: Strong Movement: Active Heart Tones: Present Heart Tones per Min: 130 Heart Rate (FHR) Variability: Moderate (6-25 bmp) Presentation: Vertex - Exam General: Alert, Oriented, Cooperative Lungs: Normal Respiratory Effort GI/Abdominal Exam: Soft, Non-Tender Rectal Exam: Deferred Genitourinary: Other (declined cervical exam) Back Exam: Normal Inspection, Full Range of Motion Extremities: Normal Inspection, Normal Range of Motion, Non-Tender, No Pedal Edema Skin: Warm, Dry, Intact Neurological: Cranial Nerves Intact, Reflexes Equal Bilateral, Strength Equal Bilateral, Normal Speech, Normal Tone, Sensation Intact Psychiatric: Alert, Normal Affect, Normal Mood - Patient Data Lab Results Last 24 hrs: Laboratory Results - last 24 hr 11/26/18 Range/Units 11:06 WBC 15.49 H (4.0-11.0) K/uL RBC 4.11 L (4.30-5.90) M/uL Hgb 12.5 (12.0-16.0) g/dL Hct 36.8 (36.0-46.0) % MCV 89.5 (80.0-98.0) fL MCH 30.4 (27.0-32.0) pg MCHC 34.0 (31.0-37.0) g/dL RDW Std Deviation 48.8 (28.0-62.0) fl RDW Coeff of Berta 15 (11.0-15.0) % Plt Count 246 (150-400) K/uL MPV 10.50 (7.40-12.00) fL Nucleated RBC % 0.0 /100WBC Nucleated RBCs # 0 K/uL Result Diagrams: 11/26/18 11:06 - Problem List (1) Supervision of normal IUP (intrauterine ) in multigravida SNOMED Code(s): 109155577, 478129983, 375638179 ICD Code: Z34.80 - ENCOUNTER FOR SUPRVSN OF NORMAL , UNSP TRIMESTER Status: Acute Priority: High Current Visit: Yes Qualifiers: Trimester: third trimester Qualified Code(s): Z34.83 - Encounter for supervision of other normal , third trimester (2) (normal spontaneous vaginal delivery) SNOMED Code(s): 31474629, 271451225 ICD Code: O80 - ENCOUNTER FOR FULL-TERM UNCOMPLICATED DELIVERY Status: Acute Priority: High Current Visit: Yes Problem List Initiated/Reviewed/Updated: Yes Orders Last 24hrs: Active Orders 24 hr Category Date Time Status Patient Status [ADT] Routine ADT 11/26/18 10:38 Active Heart Tones [RC] CONTINUOUS Care 11/26/18 10:38 Active Non Stress Test [RC] PER UNIT ROUTINE Care 11/26/18 10:38 Active May Shower [RC] ASDIRECTED Care 11/26/18 10:38 Active Notify Provider [RC] PRN Care 11/26/18 10:38 Active Up ad Annabelle [RC] ASDIRECTED Care 11/26/18 10:38 Active Vaginal Exam [RC] PRN Care 11/26/18 10:38 Active Vital Signs [RC] PER UNIT ROUTINE Care 11/26/18 10:38 Active TYPE AND SCREEN [BBK] Routine Lab 11/26/18 11:06 Received Butorphanol [Stadol] Med 11/26/18 10:38 Active 1 mg IVPUSH Q1H PRN Carboprost Tromethamine [Hemabate DS] Med 11/26/18 10:38 Active 250 mcg IM ASDIRECTED PRN Lactated Ringers [Ringers, Lactated] 1,000 ml Med 11/26/18 10:45 Active IV ASDIRECTED Lidocaine 1% [Xylocaine 1%] Med 11/26/18 10:38 Active 50 ml INJECT ONETIME PRN Methylergonovine [Methergine] Med 11/26/18 10:38 Active 0.2 mg IM ASDIRECTED PRN Nalbuphine [Nubain] Med 11/26/18 10:38 Active 10 mg IVPUSH Q1H PRN Oxytocin/0.9 % Sodium Chloride [Oxytocin 30 Unit/500 ML Med 11/26/18 10:45 Active -NS] 30 unit in 500 ml IV TITRATE Sodium Chloride 0.9% [Normal Saline] Med 11/26/18 10:38 Active 10 ml IV ASDIRECTED PRN Sodium Chloride 0.9% [Saline Flush] Med 11/26/18 10:38 Active 10 ml FLUSH ASDIRECTED PRN Sodium Chloride 0.9% [Saline Flush] Med 11/26/18 10:38 Active 2.5 ml FLUSH ASDIRECTED PRN Tranexamic Acid [Cyklokapron] 1,000 mg Med 11/26/18 10:38 Active Sodium Chloride 0.9% [Normal Saline] 100 ml IV ONETIME Water For Irrigation,Sterile [Sterile Water for Med 11/26/18 10:38 Active Irrigation] 1,000 ml IRR ASDIRECTED PRN miSOPROStol [Cytotec] Med 11/26/18 10:38 Active 200 mcg PO ONETIME PRN Scalp Electrode [WOMSER] Per Unit Routine Oth 11/26/18 10:38 Ordered Peripheral IV Insertion Adult [OM.PC] Routine Oth 11/26/18 10:38 Ordered Resuscitation Status Routine Resus Stat 11/26/18 10:38 Ordered Medication Orders Butorphanol Tartrate (Stadol) 1 mg IVPUSH Q1H PRN PRN Reason: Pain Carboprost Tromethamine (Hemabate Ds) 250 mcg IM ASDIRECTED PRN PRN Reason: Post Hemorrhage Lactated Ringer's (Ringers, Lactated) 1,000 mls @ 150 mls/hr IV ASDIRECTED SALVATORE Oxytocin/Sodium Chloride (Oxytocin 30 Unit/500 Ml-Ns) 30 unit in 500 mls @ 999 mls/hr IV TITRATE SALVATORE Tranexamic Acid 1,000 mg/ (Sodium Chloride) 110 mls @ 660 mls/hr IV ONETIME PRN PRN Reason: Bleeding Lidocaine HCl (Xylocaine 1%) 50 ml INJECT ONETIME PRN PRN Reason: Laceration repair Methylergonovine Maleate (Methergine) 0.2 mg IM ASDIRECTED PRN PRN Reason: Post Hemorrhage Misoprostol (Cytotec) 200 mcg PO ONETIME PRN PRN Reason: Post Hemorrhage Nalbuphine HCl (Nubain) 10 mg IVPUSH Q1H PRN PRN Reason: Pain (severe 7-10) Sodium Chloride (Saline Flush) 10 ml FLUSH ASDIRECTED PRN PRN Reason: Keep Vein Open Sodium Chloride (Saline Flush) 2.5 ml FLUSH ASDIRECTED PRN PRN Reason: Keep Vein Open Sodium Chloride (Normal Saline) 10 ml IV ASDIRECTED PRN PRN Reason: IV Use Sterile Water (Sterile Water For Irrigation) 1,000 ml IRR ASDIRECTED PRN PRN Reason: delivery Assessment/Plan Comment:: Admit A: 33yo EDC 11/28/2018 39 5/7wks B+, RI, GBS neg, comes in Transition labor. P: Admit, intermit monitor, defer VE, Anticipate . Dr Akers updated Delivery A: of viable female, APGARS 8/9, Wt pending. Intact, EBL 150cc, Mother and baby bonding well P: Routine pp plan of care.
--- NOTE | 2018-11-26 12:05 | PCM.DEL ---
L & D Note - General Info Date of Service: 11/26/18 Mother's Due Date: 11/28/18 - Delivery Note Labor: Spontaneous Delivery Outcome: Livebirth Infant Delivery Method: Spontaneous Vaginal Delivery-Single Delivery Mode: Spontaneous Presentation: Vertex Nuchal Cord: None Anesthesia Type: None Amniotic Fluid Description: Clear Episiotomy Type: None Laceration: None Placenta: Intact, Spontaneous Cord: 3 Vessels Estimated Blood Loss: 150 Resuscitation Needed: No Score 1 min: 8 Score 5 min: 9 Second Stage Interventions: Reports: Pushing, Left Side Delivery Comments (Free Text/Narrative):: of viable female, Head and body delivered with good pushing, infant to moms abd with RN at . Spont cry. Delayed cord clamping. Cord clamped and cut by FOB. Cord blood collected. Placenta delivered grossly intact. Inspection noted intact perineum. EBL 150cc. APGARS 8/9, Wt: pending bonding. - General Info Date of Service: 11/26/18 Admission Dx/Problem (Free Text): Patient Status Order with Admit Dx/Problem 11/26/18 10:38 Patient Status [ADT] Routine Admission Diagnosis/Problem Admission Diagnosis/Problem 11/26/18 11:56 33yo EDC 11/28/2018 39 5/7wks B+, RI, GBS neg, comes in Transition labor. Functional Status: Reports: Pain Controlled, Tolerating Diet, Ambulating - Review of Systems General: Reports: No Symptoms HEENT: Reports: No Symptoms Pulmonary: Reports: No Symptoms Cardiovascular: Reports: No Symptoms Gastrointestinal: Reports: No Symptoms Genitourinary: Reports: No Symptoms Musculoskeletal: Reports: No Symptoms Skin: Reports: No Symptoms Neurological: Reports: No Symptoms Psychiatric: Reports: No Symptoms - Patient Data Lab Results Last 24 Hours: Laboratory Results - last 24 hr 11/26/18 Range/Units 11:06 WBC 15.49 H (4.0-11.0) K/uL RBC 4.11 L (4.30-5.90) M/uL Hgb 12.5 (12.0-16.0) g/dL Hct 36.8 (36.0-46.0) % MCV 89.5 (80.0-98.0) fL MCH 30.4 (27.0-32.0) pg MCHC 34.0 (31.0-37.0) g/dL RDW Std Deviation 48.8 (28.0-62.0) fl RDW Coeff of Berta 15 (11.0-15.0) % Plt Count 246 (150-400) K/uL MPV 10.50 (7.40-12.00) fL Nucleated RBC % 0.0 /100WBC Nucleated RBCs # 0 K/uL Med Orders - Current: Current Medications Butorphanol Tartrate (Stadol) 1 mg IVPUSH Q1H PRN PRN Reason: Pain Carboprost Tromethamine (Hemabate Ds) 250 mcg IM ASDIRECTED PRN PRN Reason: Post Hemorrhage Lactated Ringer's (Ringers, Lactated) 1,000 mls @ 150 mls/hr IV ASDIRECTED SALVATORE Oxytocin/Sodium Chloride (Oxytocin 30 Unit/500 Ml-Ns) 30 unit in 500 mls @ 999 mls/hr IV TITRATE SALVATORE Tranexamic Acid 1,000 mg/ (Sodium Chloride) 110 mls @ 660 mls/hr IV ONETIME PRN PRN Reason: Bleeding Lidocaine HCl (Xylocaine 1%) 50 ml INJECT ONETIME PRN PRN Reason: Laceration repair Methylergonovine Maleate (Methergine) 0.2 mg IM ASDIRECTED PRN PRN Reason: Post Hemorrhage Misoprostol (Cytotec) 200 mcg PO ONETIME PRN PRN Reason: Post Hemorrhage Nalbuphine HCl (Nubain) 10 mg IVPUSH Q1H PRN PRN Reason: Pain (severe 7-10) Sodium Chloride (Saline Flush) 10 ml FLUSH ASDIRECTED PRN PRN Reason: Keep Vein Open Sodium Chloride (Saline Flush) 2.5 ml FLUSH ASDIRECTED PRN PRN Reason: Keep Vein Open Sodium Chloride (Normal Saline) 10 ml IV ASDIRECTED PRN PRN Reason: IV Use Sterile Water (Sterile Water For Irrigation) 1,000 ml IRR ASDIRECTED PRN PRN Reason: delivery - Exam General: Alert, Oriented, Cooperative, No Acute Distress Lungs: Normal Respiratory Effort GI/Abdominal Exam: Soft, Non-Tender, No Distention (Female) Exam: Deferred, Vaginal Bleeding Back Exam: Full Range of Motion Extremities: Normal Inspection, Normal Range of Motion, Non-Tender, No Pedal Edema Skin: Warm, Dry, Intact Neurological: No New Focal Deficit, Normal Speech, Normal Tone, Strength Equal Bilateral Psy/Mental Status: Alert - Problem List & Annotations (1) Supervision of normal IUP (intrauterine ) in multigravida SNOMED Code(s): 523728020, 362672003, 886731734 Code(s): Z34.80 - ENCOUNTER FOR SUPRVSN OF NORMAL , UNSP TRIMESTER Status: Acute Priority: High Current Visit: Yes Qualifiers: Trimester: third trimester Qualified Code(s): Z34.83 - Encounter for supervision of other normal , third trimester (2) (normal spontaneous vaginal delivery) SNOMED Code(s): 38934955, 781581027 Code(s): O80 - ENCOUNTER FOR FULL-TERM UNCOMPLICATED DELIVERY Status: Acute Priority: High Current Visit: Yes - Problem List Review Problem List Initiated/Reviewed/Updated: Yes - My Orders Last 24 Hours: My Active Orders 11/26/18 10:38 Patient Status [ADT] Routine Heart Tones [RC] CONTINUOUS Non Stress Test [RC] PER UNIT ROUTINE May Shower [RC] ASDIRECTED Notify Provider [RC] PRN Up ad Annabelle [RC] ASDIRECTED Vaginal Exam [RC] PRN Vital Signs [RC] PER UNIT ROUTINE Butorphanol [Stadol] 1 mg IVPUSH Q1H PRN Carboprost Tromethamine [Hemabate DS] 250 mcg IM ASDIRECTED PRN Lidocaine 1% [Xylocaine 1%] 50 ml INJECT ONETIME PRN Methylergonovine [Methergine] 0.2 mg IM ASDIRECTED PRN Nalbuphine [Nubain] 10 mg IVPUSH Q1H PRN Sodium Chloride 0.9% [Normal Saline] 10 ml IV ASDIRECTED PRN Sodium Chloride 0.9% [Saline Flush] 10 ml FLUSH ASDIRECTED PRN Sodium Chloride 0.9% [Saline Flush] 2.5 ml FLUSH ASDIRECTED PRN Tranexamic Acid [Cyklokapron] 1,000 mg Sodium Chloride 0.9% [Normal Saline] 100 ml IV ONETIME Water For Irrigation,Sterile [Sterile Water for Irrigation] 1,000 ml IRR ASDIRECTED PRN miSOPROStol [Cytotec] 200 mcg PO ONETIME PRN Scalp Electrode [WOMSER] Per Unit Routine Peripheral IV Insertion Adult [OM.PC] Routine Resuscitation Status Routine 11/26/18 10:45 Lactated Ringers [Ringers, Lactated] 1,000 ml IV ASDIRECTED Oxytocin/0.9 % Sodium Chloride [Oxytocin 30 Unit/500 ML-NS] 30 unit in 500 ml IV TITRATE 11/26/18 11:06 TYPE AND SCREEN [BBK] Routine - Plan Plan:: Admit A: 33yo EDC 11/28/2018 39 5/7wks B+, RI, GBS neg, comes in Transition labor. P: Admit, intermit monitor, defer VE, Anticipate . Dr Akers updated Delivery A: of viable female, APGARS 8/9, Wt pending. Intact, EBL 150cc, Mother and baby bonding well P: Routine pp plan of care.
[2018-11-26] MEDS ORDERED: oxyCODONE 5 MG Tab PO PRN (12:07)
[2018-11-26] MEDS ORDERED: Bisacodyl 10 MG Supp RECTAL PRN (12:07)
[2018-11-26] MEDS ORDERED: Lanolin 100% Cream 7 GM Tube TOP PRN (12:07)
[2018-11-26] MEDS ORDERED: Docusate Sodium 100 MG Cap PO PRN (12:07)
[2018-11-26] MEDS ORDERED: Acetaminophen 500 MG Tab PO PRN ×2 (12:07)
[2018-11-26] MEDS ORDERED: Ibuprofen 400 MG Tab PO PRN (12:07)
[2018-11-26] MEDS ORDERED: Ibuprofen 800 MG Tab PO PRN (12:07)
[2018-11-26] MEDS ORDERED: Witch Hazel Medicated Pads 40/Jar TOP PRN (12:07)
[2018-11-26] MEDS ORDERED: Benzocaine/Menthol 20%-0.5% Spray 78 GM Cannister TOP PRN (12:07)
== END 2018-11-26 20:00 | disposition home or self-care (01) | DRG 560 ==
LOC: MW.OBCHECK 10:16 → MW.OB 10:18 → MW.OBCHECK 10:38 → OBSVTOIN 11:40 → MW.OB 15:15
PROVIDERS: ADMIT Obstetrics & Gynecology; ATTEND Advanced Practice Midwife
PROC: 10E0XZZ Delivery of Products of Conception, External Approach (ICD-10-PCS; principal; 2018-11-26)
DX: O80 Encounter for full-term uncomplicated delivery (principal); Z3A.39 39 weeks gestation of pregnancy; Z37.0 Single live birth
CPT/HCPCS: 36415; 59025; 59409; 85027; 86850; 86900; 86901; A9270-GY

== ENCOUNTER 2019-05-25 18:49 | Emergency (ER) | payer BC ==
[2019-05-25] MEDS ORDERED: Ondansetron 4 MG Tab.DIS PO ONE (19:06)
--- NOTE | 2019-05-25 19:16 | EDM.PDOC ---
ED HPI GENERAL MEDICAL PROBLEM - General Chief Complaint: MEDICAL TECHNOLOGIST MICROBIOLOGY Problem Stated Complaint: VOMITTING,IUD PLACEMENT Time Seen by Provider: 05/25/19 19:04 Source of Information: Reports: Patient History Limitations: Reports: No Limitations - History of Present Illness INITIAL COMMENTS - FREE TEXT/NARRATIVE: HISTORY AND PHYSICAL: History of present illness: Patient is a 34-year-old female who presents to the emergency room with complaints of back pain, nausea vomiting and generally feeling unwell. Patient reports she had an IUD placed on and shortly after developed some abdominal and low back cramping. She states the pain continued into Monday. Monday evening she had several alcoholic beverages but states no more than would cause her to become ill. In the middle of the night she woke up with nausea vomiting and low back pain again. Throughout the day today she states she has not been able to keep any fluids down until now. She is concerned that there is something wrong with her IUD as she did try to feel for her strings which was unsuccessful. Review of systems: As per history of present illness and below otherwise all systems reviewed and negative. Past medical history: As per history of present illness and as reviewed below otherwise noncontributory. Surgical history: As per history of present illness and as reviewed below otherwise noncontributory. Social history: See social history for further information Family history: As per history of present illness and as reviewed below otherwise noncontributory. Physical exam: General: Well-developed and well-nourished 34-year-old female. Alert and oriented. Nontoxic appearing and in no acute distress. HEENT: Atraumatic, normocephalic, pupils equal and reactive bilaterally, negative for conjunctival pallor or scleral icterus, mucous membranes moist, TMs normal bilaterally, throat clear, neck supple, nontender, trachea midline. No drooling or trismus noted. No meningeal signs. No hot potato voice noted. Lungs: Clear to auscultation, breath sounds equal bilaterally, chest nontender. Heart: S1S2, regular rate and rhythm without overt murmur Abdomen: Soft, nondistended, nontender. Negative for masses or hepatosplenomegaly. Negative for costovertebral tenderness. Pelvis: Stable nontender. Skin: Intact, warm, dry. No lesions or rashes noted. Extremities: Atraumatic, moves all extremities per self without difficulty or deficits, negative for cords or calf pain. Neurovascular unremarkable. Neuro: Awake, alert, oriented. Cranial nerves II through XII unremarkable. Cerebellum unremarkable. Motor and sensory unremarkable throughout. Exam nonfocal. Notes: She has been keeping fluids down orally while here in the emergency room. We discussed signs and symptoms that would prompt her to return to the emergency room. Also like her to follow up with her primary care provider next week. Supportive care measures were reviewed and discussed. Voices understanding and is agreeable to plan of care. Denies any further questions or concerns at this time. Diagnostics: CBC, CMP, UA, Non-OB ultrasound Therapeutics: Zofran, Rocephin, Fluids Prescription: Cipro Zofran Impression: UTI Plan: 1. Take the antibiotic as directed. Increase your oral fluids. 2. Tylenol and/or Ibuprofen for pain and fever management. Zofran for nausea as needed. 3. Follow up with your primary care provider. Return to the ED as needed as discussed. Definitive disposition and diagnosis as appropriate pending reevaluation and review of above. Headache Pain Score (Numeric/FACES): 5 - Related Data Allergies Allergy/AdvReac Type Severity Reaction Status Date / Time No Known Allergies Allergy Verified 05/25/19 19:02 Home Meds: Home Meds Ciprofloxacin HCl [Cipro] 500 mg PO BID 7 Days #14 tablet 05/25/19 [Rx] Ondansetron [Zofran ODT] 4 mg PO Q6H PRN #6 tab.dis 05/25/19 [Rx] [id number]/Iron Fumarate/FA/DSS [ 19 Tablet] 1 each PO DAILY 05/25/19 [ History] Past Medical History - Past Health History Medical/Surgical History: Denies Medical/Surgical History HEENT History: Reports: None Cardiovascular History: Reports: None Respiratory History: Reports: None Other Gastrointestinal History: constipation with Genitourinary History: Reports: Pyelonephritis Other Genitourinary History: current UTI, pyelonephritis, flank pain 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: Musculoskeletal History: Reports: None Neurological History: Reports: None Psychiatric History: Reports: None Endocrine/Metabolic History: Reports: None Hematologic History: Reports: None Immunologic History: Reports: None Oncologic (Cancer) History: Reports: None Dermatologic History: Reports: None - Infectious Disease History Infectious Disease History: Reports: Chicken Pox - Past Surgical History Female Surgical History: Reports: Other (See Below) Other Female Surgeries/Procedures: Kidney infection 07/2018 Social & Family History - Family History Family Medical History: Noncontributory - Tobacco Use Smoking Status *Q: Never Smoker - Caffeine Use Caffeine Use: Reports: Coffee, Soda - Recreational Drug Use Recreational Drug Use: No ED ROS GENERAL - Review of Systems Review Of Systems: Comprehensive ROS is negative, except as noted in HPI. ED EXAM, RENAL/ - Physical Exam Exam: See Below (See dictation) Course - Vital Signs Last Recorded V/S: Last Vital Signs Temp 97.8 F 05/25/19 18:59 Pulse 93 05/25/19 20:00 Resp 18 05/25/19 18:59 BP 108/71 05/25/19 20:00 Pulse Ox 95 05/25/19 18:59 - Orders/Labs/Meds Orders: Active Orders 24 hr Category Date Time Status CULTURE URINE [RM] Stat Lab 05/25/19 19:10 Received Labs: Laboratory Tests 05/25/19 05/25/19 05/25/19 Range/Units 19:10 19:20 19:20 WBC 11.56 H (4.0-11.0) K/uL RBC 4.59 (4.30-5.90) M/uL Hgb 13.8 (12.0-16.0) g/dL Hct 41.5 (36.0-46.0) % MCV 90.4 (80.0-98.0) fL MCH 30.1 (27.0-32.0) pg MCHC 33.3 (31.0-37.0) g/dL RDW Std Deviation 45.2 (28.0-62.0) fl RDW Coeff of Berta 14 (11.0-15.0) % Plt Count 199 (150-400) K/uL MPV 9.70 (7.40-12.00) fL Neut % (Auto) 81.8 H (48.0-80.0) % Lymph % (Auto) 9.8 L (16.0-40.0) % Mcclain % (Auto) 8.2 (0.0-15.0) % Eos % (Auto) 0.0 (0.0-7.0) % Baso % (Auto) 0.2 (0.0-1.5) % Neut # (Auto) 9.5 H (1.4-5.7) K/uL Lymph # (Auto) 1.1 (0.6-2.4) K/uL Mcclain # (Auto) 1.0 H (0.0-0.8) K/uL Eos # (Auto) 0.0 (0.0-0.7) K/uL Baso # (Auto) 0.0 (0.0-0.1) K/uL Nucleated RBC % 0.0 /100WBC Nucleated RBCs # 0 K/uL Sodium 136 (136-145) mmol/L Potassium 4.0 (3.5-5.1) mmol/L Chloride 101 (98-107) mmol/L Carbon Dioxide 24.6 (21.0-32.0) mmol/L BUN 16 (7.0-18.0) mg/dL Creatinine 0.9 (0.6-1.0) mg/dL Est Cr Clr Drug Dosing 80.92 mL/min Estimated GFR (MDRD) > 60.0 ml/min Glucose 89 (74-106) mg/dL Calcium 8.8 (8.5-10.1) mg/dL Total Bilirubin 0.7 (0.2-1.0) mg/dL AST 19 (15-37) IU/L ALT 21 (14-63) IU/L Alkaline Phosphatase 66 (46-116) U/L Total Protein 8.2 (6.4-8.2) g/dL Albumin 3.9 (3.4-5.0) g/dL Globulin 4.3 H (2.6-4.0) g/dL Albumin/Globulin Ratio 0.9 (0.9-1.6) Urine Color YELLOW Urine Appearance HAZY Urine pH 7.0 (5.0-8.0) Ur Specific Hyndman 1.010 (1.001-1.035) Urine Protein NEGATIVE (NEGATIVE) mg/dL Urine Glucose (UA) NEGATIVE (NEGATIVE) mg/dL Urine Ketones >=80 (NEGATIVE) mg/dL Urine Occult Blood SMALL H (NEGATIVE) Urine Nitrite POSITIVE H (NEGATIVE) Urine Bilirubin NEGATIVE (NEGATIVE) Urine Urobilinogen 1.0 (<2.0) EU/dL Ur Leukocyte Esterase LARGE H (NEGATIVE) Urine RBC 2-5 (0-2/HPF) Urine WBC 25-34 (0-5/HPF) Ur Epithelial Cells OCCASIONAL (NONE-FEW) Urine Bacteria 3+ H (NEGATIVE) Meds: Medications Discontinued Medications Generic Name Dose Route Start Last Admin Trade Name Freq PRN Reason Stop Dose Admin Ceftriaxone Sodium/Dextrose 1 50 mls @ 100 mls/hr 05/25/19 19:41 05/25/19 19: 51 gm/ Premix IV 05/25/19 20:10 100 mls/hr ONETIME ONE Administration Sodium Chloride 1,000 mls @ 999 mls/hr 05/25/19 19:41 05/25/19 19:48 Normal Saline IV 05/25/19 20:41 999 mls/hr STAT ONE Administration Ondansetron HCl 4 mg 05/25/19 19:06 05/25/19 19:25 Zofran Odt PO 05/25/19 19:07 4 mg ONETIME ONE Administration Departure - Departure Time of Disposition: 20:47 Disposition: Home, Self-Care 01 Clinical Impression: Urinary tract infection - Discharge Information Prescriptions: Ciprofloxacin HCl [Cipro] 500 mg PO BID 7 Days #14 tablet Ondansetron [Zofran ODT] 4 mg PO Q6H PRN #6 tab.dis PRN Reason: Nausea Instructions: Urinary Tract Infection, Adult, [id number] Referrals: PCP,None [Primary Care Provider] - Forms: ED Department Discharge Additional Instructions: The following information is given to patients seen in the emergency department who are being discharged to home. This information is to outline your options for follow-up care. We provide all patients seen in our emergency department with a follow-up referral. The need for follow-up, as well as the timing and circumstances, are variable depending upon the specifics of your emergency department visit. If you don't have a primary care physician on staff, we will provide you with a referral. We always advise you to contact your personal physician following an emergency department visit to inform them of the circumstance of the visit and for follow-up with them and/or the need for any referrals to a consulting specialist. The emergency department will also refer you to a specialist when appropriate. This referral assures that you have the opportunity for follow-up care with a specialist. All of these measure are taken in an effort to provide you with optimal care, which includes your follow-up. Under all circumstances we always encourage you to contact your private physician who remains a resource for coordinating your care. When calling for follow-up care, please make the office aware that this follow-up is from your recent emergency room visit. If for any reason you are refused follow-up, please contact the [facility] Emergency Department at and asked to speak to the emergency department charge nurse. [facility] [address] [place] [id number] [facility] [address] [place] [id number] 1. Take the antibiotic as directed. Increase your oral fluids. 2. Tylenol and/or Ibuprofen for pain and fever management. Zofran for nausea as needed. 3. Follow up with your primary care provider. Return to the ED as needed as discussed. - My Orders Last 24 Hours: My Active Orders 05/25/19 19:10 CULTURE URINE [RM] Stat - Assessment/Plan Last 24 Hours: My Active Orders 05/25/19 19:10 CULTURE URINE [RM] Stat
[2019-05-25] MEDS ORDERED: Sodium Chloride 0.9% 1,000 ML IV ONE (19:41)
[2019-05-25] MEDS ORDERED: cefTRIAXone 1 GM in Premix Bag 1 BAG IV ONE (19:41)
[2019-05-25 19:47] LABS: BLOOD UREA NITROGEN,BUN 16 mg/dL (7.0-18.0); CARBON DIOXIDE,CO2 24.6 mmol/L (21.0-32.0); CHLORIDE,CL 101 mmol/L (98-107); GLUCOSE RANDOM 89 mg/dL (74-106); SODIUM,NA 136 mmol/L (136-145)
--- NOTE | 2019-05-25 20:42 | US ---
INDICATION: Cramping since IUD placed TECHNIQUE: Ultrasound pelvis transvaginal. Endovaginal imaging was performed to better visualize the endometrium and ovaries. Real-time funes scale sonographic images with spectral and color Doppler imaging of the ovaries were obtained. COMPARISON: None FINDINGS: Uterus: 4.4 x 3.5 x 7 cm. An IUD is present in the uterine cavity near the fundus with no sonographically identified complications. Endometrium: 5 mm. Right ovary: 2.3 x 1.3 x 3 cm. The right ovary is normal in appearance and echotexture. Normal arterial and venous blood flow seen in the right ovary. Left ovary: 2.2 x 2 x 1.5 cm. The left ovary is normal in appearance and echotexture. Normal arterial and venous blood flow seen in the left ovary. Cul-de-sac: No significant ascites noted. IMPRESSION: 1. An IUD is present in the uterine cavity near the fundus with no sonographically identified complications. Dictated by Mohinder Zuluaga MD @ 05/25/2019 8:40:46 PM Dictated by: Mohinder Zuluaga MD @ 05/25/2019 20:40:55 (Electronically Signed)
== END 2019-05-25 21:45 | disposition home or self-care (01) ==
LOC: MW.ED 18:49
DX: N39.0 Urinary tract infection, site not specified (principal)
CPT/HCPCS: 36415; 76857; 80053; 81001; 85025; 87086; 87088; 87186; 87804; 96361; 96365; 96375; 99283; A9270; J0696; J7030

== ENCOUNTER 2019-06-23 16:18 | Emergency (ER) | payer BC, OTHER ==
[2019-06-23] MEDS ORDERED: Sodium Chloride 0.9% 1,000 ML IV ONE (17:45)
[2019-06-23] MEDS ORDERED: Ketorolac 30 MG/ML SDV IVPUSH ONE (17:45)
[2019-06-23] MEDS ORDERED: Ondansetron 4 MG/2 ML SDV IVPUSH ONE (17:47)
[2019-06-23] MEDS ORDERED: cefTRIAXone 1 GM in Premix Bag 1 BAG IV ONE (18:20)
[2019-06-23 18:29] LABS: BLOOD UREA NITROGEN,BUN 15 mg/dL (7.0-18.0); CARBON DIOXIDE,CO2 18.6 mmol/L (21.0-32.0); CHLORIDE,CL 96 mmol/L (98-107); GLUCOSE RANDOM 74 mg/dL (74-106); LIPASE 118 U/L (73-393); POTASSIUM,K 4.3 mmol/L (3.5-5.1); SODIUM,NA 132 mmol/L (136-145)
--- NOTE | 2019-06-23 18:53 | CR ---
Indication: Chest pain. Fever. Technique: AP portable view of the chest. Comparison: None Findings: The heart is normal in size. The lungs are clear. No infiltrate, pleural effusion, or pneumothorax is identified. Impression: No acute cardiopulmonary process Dictated by Sabina Fierro MD @ Jun 23 2019 6:51PM Signed by Dr. Sabina Fierro @ Jun 23 2019 6:52PM
--- NOTE | 2019-06-23 19:49 | EDM.PDOC ---
ED HPI GENERAL MEDICAL PROBLEM - General Chief Complaint: ENT Problem Stated Complaint: POSSIBLE FLU Time Seen by Provider: 06/23/19 16:20 - History of Present Illness INITIAL COMMENTS - FREE TEXT/NARRATIVE: HPI 34-year-old female presents for evaluation of nausea, vomiting, fevers, and body aches for approximately 3 days. Denies cough, headache, neck stiffness, rash, endorses mild anorexia but continues to take liquids well. Passing urine, flatus, stool baseline. No history of ureterolithiasis. Triage note: Pt states that she has felt vausea, vomiting, fevers and body aches for the last 3 days.] ED visit on 05/25/19 with a BP of 108/71. M/S/F/SocHx notable for: please see HPI; remainder reviewed with patient and in chart. ROS: Negative constitutional, eye, cardiovascular, pulmonary, GI, , MSK, skin , neurologic, psychiatric, endocrine unless noted in the HPI. Exam HR 104, RR 20, BP 102/73, T 37.0C, SaO2 90% on room air. Gen: Pleasant, mildly uncomfortable but non-toxic in appearance. HEENT: NC, AT, PEERL, EOMI. Resp: Clear to auscultation bilaterally, normal work of breathing, no accessory muscle usage. Card: Regular rate and rhythm with no murmurs, rubs, or gallops, extremities warm and well perfused. GI: Non-tender to palpation throughout all quadrants, no focal tenderness at McBurney's point, negative Ruiz's sign, non-distended, no rebound or guarding. : No suprapubic tenderness to palpation. No CVA tenderness percussion bilaterally. MSK: No visible deformities, strength and tone without visually appreciable deficit. Skin: Normal color with no visible lesions. Neuro: alert and oriented 3, no facial asymmetry, vision and hearing WNL. Psych: Mood and affect appropriate. Labs / Imaging: CXR: no acute cardiopulmonary process. WBC 11.56, HB 13.1, lactic acid 1.1, sodium 132, potassium 4.3, AST 14, ALT 20, alkaline phosphatase 75, total bilirubin 0.8, lipase 118. HCG negative. UA - positive nitrite, moderate leukocyte esterase, 75-80 WBCs, occasional epithelial cells, few bacteria, moderate occult blood, 1-3 RBCs. Negative influenza A & B. Negative rapid strep.] MDM Previous chart, nursing note, labs, imaging, and vitals reviewed. A: 34-year-old female presents for evaluation of nausea, vomiting, fevers, and body aches for approximately 3 days. Evaluation: patient mildly uncomfortable but otherwise well appearing, UA consistent with UTI, given overall symptom constellation suspect this represents pyelonephritis despite the lack of flank pain. Given the absence of a history of ureterolithiasis, absence of flank pain, and minimal hematuria imaging with respect to ureterolithiasis is not presently indicated. Negative influenza testing, negative strep screen, chest x-ray unremarkable. Mild leukocytosis noted labs, remainder WNL. Given the overall clinical picture no features suggestive of sepsis pathophysiology. Patient was given ceftriaxone, total, Zofran, and 1 L NS with improvement symptoms. Discharged with RX for ciprofloxacin. Impression: pyelonephritis. head Pain Score (Numeric/FACES): 7 - Related Data Allergies Allergy/AdvReac Type Severity Reaction Status Date / Time No Known Allergies Allergy Verified 06/23/19 16:38 Home Meds: Home Meds Ciprofloxacin HCl [Cipro] 500 mg PO BID #19 tablet 06/23/19 [Rx] Past Medical History - Past Health History Medical/Surgical History: Denies Medical/Surgical History HEENT History: Reports: None Cardiovascular History: Reports: None Respiratory History: Reports: None Other Gastrointestinal History: constipation with Genitourinary History: Reports: Pyelonephritis Other Genitourinary History: current UTI, pyelonephritis, flank pain [employer] History: Reports: Musculoskeletal History: Reports: None Neurological History: Reports: None Psychiatric History: Reports: None Endocrine/Metabolic History: Reports: None Hematologic History: Reports: None Immunologic History: Reports: None Oncologic (Cancer) History: Reports: None Dermatologic History: Reports: None - Infectious Disease History Infectious Disease History: Reports: Chicken Pox - Past Surgical History Female Surgical History: Reports: Other (See Below) Other Female Surgeries/Procedures: Kidney infection 07/2018 Social & Family History - Family History Family Medical History: Noncontributory - Tobacco Use Smoking Status *Q: Never Smoker Second Hand Smoke Exposure: No - Caffeine Use Caffeine Use: Reports: None - Recreational Drug Use Recreational Drug Use: No ED ROS GENERAL - Review of Systems Review Of Systems: See Below ED EXAM, GENERAL - Physical Exam Exam: See Below Course - Vital Signs Last Recorded V/S: Last Vital Signs Temp 36.6 C 06/23/19 19:37 Pulse 82 06/23/19 19:37 Resp 14 06/23/19 19:37 BP 104/57 L 06/23/19 19:37 Pulse Ox 97 06/23/19 19:37 - Orders/Labs/Meds Orders: Active Orders 24 hr Category Date Time Status CULTURE BLOOD [BC] Stat Lab 06/23/19 18:29 Received CULTURE BLOOD [BC] Stat Lab 06/23/19 18:42 Received CULTURE STREP A CONFIRMATION [RM] Stat Lab 06/23/19 16:50 Results CULTURE URINE [] Stat Lab 06/23/19 17:12 Received STREP SCRN A RAPID W CULT CONF [] Stat Lab 06/23/19 16:50 Results Blood Culture x2 Reflex Set [OM.PC] Stat Oth 06/23/19 18:19 Ordered Labs: Laboratory Tests 06/23/19 06/23/19 06/23/19 Range/Units 17:12 18:00 18:00 WBC 11.56 H (4.0-11.0) K/uL RBC 4.37 (4.30-5.90) M/uL Hgb 13.1 (12.0-16.0) g/dL Hct 38.8 (36.0-46.0) % MCV 88.8 (80.0-98.0) fL MCH 30.0 (27.0-32.0) pg MCHC 33.8 (31.0-37.0) g/dL RDW Std Deviation 44.4 (28.0-62.0) fl RDW Coeff of Berta 14 (11.0-15.0) % Plt Count 151 (150-400) K/uL MPV 9.70 (7.40-12.00) fL Neut % (Auto) 70.7 (48.0-80.0) % Lymph % (Auto) 14.8 L (16.0-40.0) % Trigg % (Auto) 14.4 (0.0-15.0) % Eos % (Auto) 0.0 (0.0-7.0) % Baso % (Auto) 0.1 (0.0-1.5) % Neut # (Auto) 8.2 H (1.4-5.7) K/uL Lymph # (Auto) 1.7 (0.6-2.4) K/uL Trigg # (Auto) 1.7 H (0.0-0.8) K/uL Eos # (Auto) 0.0 (0.0-0.7) K/uL Baso # (Auto) 0.0 (0.0-0.1) K/uL Nucleated RBC % 0.0 /100WBC Nucleated RBCs # 0 K/uL Lactate (0.20-2.00) mmol/L Sodium 132 L (136-145) mmol/L Potassium 4.3 (3.5-5.1) mmol/L Chloride 96 L (98-107) mmol/L Carbon Dioxide 18.6 L (21.0-32.0) mmol/L BUN 15 (7.0-18.0) mg/dL Creatinine 0.8 (0.6-1.0) mg/dL Est Cr Clr Drug Dosing 92.24 mL/min Estimated GFR (MDRD) > 60.0 ml/min Glucose 74 (74-106) mg/dL Calcium 9.0 (8.5-10.1) mg/dL Total Bilirubin 0.8 (0.2-1.0) mg/dL AST 14 L (15-37) IU/L ALT 20 (14-63) IU/L Alkaline Phosphatase 75 (46-116) U/L Total Protein 8.2 (6.4-8.2) g/dL Albumin 3.5 (3.4-5.0) g/dL Globulin 4.7 H (2.6-4.0) g/dL Albumin/Globulin Ratio 0.7 L (0.9-1.6) Lipase 118 (73-393) U/L HCG, Qual (NEG) Urine Color YELLOW Urine Appearance CLOUDY Urine pH 6.0 (5.0-8.0) Ur Specific Browning 1.025 (1.001-1.035) Urine Protein TRACE H (NEGATIVE) mg/dL Urine Glucose (UA) NEGATIVE (NEGATIVE) mg/dL Urine Ketones >=80 (NEGATIVE) mg/dL Urine Occult Blood MODERATE H (NEGATIVE) Urine Nitrite POSITIVE H (NEGATIVE) Urine Bilirubin NEGATIVE (NEGATIVE) Urine Urobilinogen 0.2 (<2.0) EU/dL Ur Leukocyte Esterase MODERATE H (NEGATIVE) Urine RBC 1-3 (0-2/HPF) Urine WBC 75-80 (0-5/HPF) Ur Epithelial Cells OCCASIONAL (NONE-FEW) Urine Bacteria FEW (NEGATIVE) 06/23/19 06/23/19 Range/Units 18:00 18:19 WBC (4.0-11.0) K/uL RBC (4.30-5.90) M/uL Hgb (12.0-16.0) g/dL Hct (36.0-46.0) % MCV (80.0-98.0) fL MCH (27.0-32.0) pg MCHC (31.0-37.0) g/dL RDW Std Deviation (28.0-62.0) fl RDW Coeff of Berta (11.0-15.0) % Plt Count (150-400) K/uL MPV (7.40-12.00) fL Neut % (Auto) (48.0-80.0) % Lymph % (Auto) (16.0-40.0) % Trigg % (Auto) (0.0-15.0) % Eos % (Auto) (0.0-7.0) % Baso % (Auto) (0.0-1.5) % Neut # (Auto) (1.4-5.7) K/uL Lymph # (Auto) (0.6-2.4) K/uL Trigg # (Auto) (0.0-0.8) K/uL Eos # (Auto) (0.0-0.7) K/uL Baso # (Auto) (0.0-0.1) K/uL Nucleated RBC % /100WBC Nucleated RBCs # K/uL Lactate 1.1 (0.20-2.00) mmol/L Sodium (136-145) mmol/L Potassium (3.5-5.1) mmol/L Chloride (98-107) mmol/L Carbon Dioxide (21.0-32.0) mmol/L BUN (7.0-18.0) mg/dL Creatinine (0.6-1.0) mg/dL Est Cr Clr Drug Dosing mL/min Estimated GFR (MDRD) ml/min Glucose (74-106) mg/dL Calcium (8.5-10.1) mg/dL Total Bilirubin (0.2-1.0) mg/dL AST (15-37) IU/L ALT (14-63) IU/L Alkaline Phosphatase (46-116) U/L Total Protein (6.4-8.2) g/dL Albumin (3.4-5.0) g/dL Globulin (2.6-4.0) g/dL Albumin/Globulin Ratio (0.9-1.6) Lipase (73-393) U/L HCG, Qual NEGATIVE (NEG) Urine Color Urine Appearance Urine pH (5.0-8.0) Ur Specific Browning (1.001-1.035) Urine Protein (NEGATIVE) mg/dL Urine Glucose (UA) (NEGATIVE) mg/dL Urine Ketones (NEGATIVE) mg/dL Urine Occult Blood (NEGATIVE) Urine Nitrite (NEGATIVE) Urine Bilirubin (NEGATIVE) Urine Urobilinogen (<2.0) EU/dL Ur Leukocyte Esterase (NEGATIVE) Urine RBC (0-2/HPF) Urine WBC (0-5/HPF) Ur Epithelial Cells (NONE-FEW) Urine Bacteria (NEGATIVE) Meds: Medications Discontinued Medications Generic Name Dose Route Start Last Admin Trade Name Freq PRN Reason Stop Dose Admin Sodium Chloride 1,000 mls @ 999 mls/hr 06/23/19 17:45 06/23/19 17:57 Normal Saline IV 06/23/19 18:45 999 mls/hr BOLUS ONE Administration Ceftriaxone Sodium/Dextrose 1 50 mls @ 100 mls/hr 06/23/19 18:20 06/23/19 18: 36 gm/ Premix IV 06/23/19 18:49 100 mls/hr ONETIME ONE Administration Ketorolac Tromethamine 30 mg 06/23/19 17:45 06/23/19 17:57 Toradol IVPUSH 06/23/19 17:46 30 mg ONETIME ONE Administration Ondansetron HCl 4 mg 06/23/19 17:47 06/23/19 17:57 Zofran IVPUSH 06/23/19 17:48 4 mg ONETIME ONE Administration Departure - Departure Time of Disposition: 19:47 Disposition: Home, Self-Care 01 Clinical Impression: Pyelonephritis - Discharge Information Prescriptions: Ciprofloxacin HCl [Cipro] 500 mg PO BID #19 tablet Referrals: Sharon Brush NP [Primary Care Provider] - Additional Instructions: You were in seen in the [facility] Emergency Department for evaluation of fever, nausea, and vomiting. You are believed to have a urinary tract infection called pyelonephritis and have been prescribed ciprofloxacin. Please read and follow all of the instructions below. Please follow up with your primary care physician for repeat evaluation. When calling for follow-up care, please make the office aware that this follow-up is from your recent emergency room visit. If for any reason you are refused follow- up, please contact the [facility] Emergency Department at and asked to speak to the emergency department charge nurse. Your care today was limited to identifying and treating emergent medical problems only. Many people have subtle differences in their test results that require follow up with their outpatient physician(s) to correctly determine if this represents a normal variation or concerning abnormality with respect to your specific health. The care given to you today was limited to identifying and treating emergent medical problems - you need to request a copy of all of your medical records from today's visit and follow up with your outpatient physician(s) to review both today's visit and your overall health. If you have any new symptoms or if you are at all concerned about your health please return immediately to the emergency department. You have an infection of your urinary tract that has spread to your kidneys ( pyelonephritis). * Take the antibiotics as prescribed. * Stay well hydrated (8-12 glasses of water per day). * Take ibuprofen 600 mg every 6-8 hours for relief of pain, you may also take acetaminophen 1000 mg every 6 hours for relief of pain. Please return to the emergency department if you develop any of the following: * Fever above 101.5F or shaking chills. * Worsening flank pain. * Worsening back pain. * Blood in your urine. * Decreased urine output or difficulty urinating. * Nausea or vomiting. * If you are otherwise concerned about your health. If after 3 days of you still have pain on urination or a sensation that you need to urinate frequently please follow up with your primary care physician. Ciprofloxacin (Brand Name: Cipro) * Take 500 mg every 12 hours for the next 10 days. * Call your physician or the emergency deparment if you believe you are having side effects due to this drug. * Please read the warnings below. CIPRO - WARNING: This medication may rarely cause tendon damage (e.g., tendonitis, tendon rupture) during or after treatment. Your risk for tendon problems is greater if you are over 60 years of age, if you are taking corticosteroids (such as prednisone), or if you have a kidney, heart or lung transplant. Stop exercising, rest, and seek immediate medical attention if you develop joint/muscle/tendon pain or swelling. CIPRO - HOW TO USE: Read the Medication Guide provided by your pharmacist before you start using ciprofloxacin and each time you get a refill. If you have any questions, consult your doctor or pharmacist. This medication may be taken with or without food, usually twice a day in the morning and evening or as directed by your doctor. The dosage and length of treatment is based on your medical condition and response to treatment. Drink plenty of fluids while taking this medication unless your doctor tells you otherwise. Take this medication at least 2 hours before or 6 hours after taking other products that may bind to it, decreasing its effectiveness. Ask your pharmacist about the other products you take. Some examples include: quinapril, vitamins/minerals ( including iron and zinc supplements), and products containing magnesium, aluminum, or calcium (such as antacids, didanosine solution, calcium supplements ). Calcium-rich foods, including dairy products (such as milk, yogurt) or calcium-enriched juice, can also decrease the effect of this medication. Take this medication at least 2 hours before or 6 hours after eating calcium-rich foods, unless you are eating these foods as part of a larger meal that contains other (usu-[id number]) foods. These other foods decrease the calcium binding effect. Ask your doctor or pharmacist about safely using nutritional supplements /replacements with this medication. CIPRO - SIDE EFFECTS: See also Warning section. Nausea, diarrhea, dizziness, lightheadedness, headache, or trouble sleeping may occur. If any of these effects persist or worsen, tell your doctor or pharmacist promptly. Remember that your doctor has prescribed this medication because he or she has judged that the benefit to you is greater than the risk of side effects. Many people using this medication do not have serious side effects. Tell your doctor immediately if any of these unlikely but serious side effects occur: mental/ mood changes (e.g., anxiety, confusion, hallucinations, depression, rare thoughts of suicide), shaking (tremors), skin that sunburns more easily (sun sensitivity). Ciprofloxacin may rarely cause serious nerve problems that may be reversible if identified and treated early. Seek immediate medical attention if you develop any of the following symptoms: pain/numbness/burning/tingling/ weakness in any part of the body, changes in how you sense touch/pain/ temperature/body position/vibration. Tell your doctor immediately if any of these rare but very serious side effects occur: unusual bruising/bleeding, severe/persistent headache, signs of a new infection (e.g., new/persistent fever , persistent sore throat), unusual change in the amount of urine, change in color of urine (red/pink urine), signs of liver problems (e.g., unusual tiredness, stomach/abdominal pain, persistent nausea/vomiting, yellowing eyes/ skin, dark urine), vision changes. Seek immediate medical attention if any of these rare but very serious side effects occur: severe dizziness, fainting, fast /irregular heartbeat, seizures. This medication may rarely cause a severe intestinal condition (Clostridium difficile-associated diarrhea) due to a type of resistant bacteria. This condition may occur during treatment or weeks to months after treatment has stopped. Do not use anti-diarrhea products or narcotic pain medications if you have any of the following symptoms because these products may make them worse. Tell your doctor immediately if you develop : persistent diarrhea, abdominal or stomach pain/cramping, blood/mucus in your stool. Use of this medication for prolonged or repeated periods may result in oral thrush or a new vaginal yeast infection. Contact your doctor if you notice white patches in your mouth, a change in vaginal discharge, or other new symptoms. A very serious allergic reaction to this drug is rare. However, seek immediate medical attention if you notice any of the following symptoms of a serious allergic reaction: rash, itching/swelling (especially of the face/tongue /throat), severe dizziness, trouble breathing. This is not a complete list of possible side effects. If you notice other effects not listed above, contact your doctor or pharmacist. PRECAUTIONS: Before taking ciprofloxacin, tell your doctor or pharmacist if you are allergic to it; or to other quinolone antibiotics such as norfloxacin, gemifloxacin, levofloxacin, moxifloxacin, or ofloxacin; or if you have any other allergies. This product may contain inactive ingredients, which can cause allergic reactions or other problems. Talk to your pharmacist for more details. Before using this medication, tell your doctor or pharmacist your medical history, especially of: diabetes, heart problems (e.g., recent heart attack), joint/tendon problems (e.g., tendonitis, bursitis), kidney disease, liver disease, nervous system disorder (e.g., peripheral neuropathy), seizure disorder , conditions that increase your risk of seizures (e.g., brain/head injury, brain tumors, cerebral atherosclerosis). Ciprofloxacin may cause a condition that affects the heart rhythm (QT prolongation). QT prolongation can infrequently result in serious (rarely fatal) fast/irregular heartbeat and other symptoms (such as severe dizziness, fainting) that require immediate medical attention. The risk of QT prolongation may be increased if you have certain medical conditions or are taking other drugs that may affect the heart rhythm (see also Drug Interactions section). Before using ciprofloxacin, tell your doctor or pharmacist if you have any of the following conditions: certain heart problems (heart failure, slow heartbeat, QT prolongation in the EKG), family history of certain heart problems (QT prolongation in the EKG, sudden cardiac ). Low levels of potassium or magnesium in the blood may also increase your risk of QT prolongation. This risk may increase if you use certain drugs (such as diuretics/"water pills") or if you have conditions such as severe sweating, diarrhea, or vomiting. Talk to your doctor about using ciprofloxacin safely. This medication may rarely cause serious changes in blood sugar levels, especially if you have diabetes. Watch for symptoms of high blood sugar including increased thirst and urination. Also watch for symptoms of low blood sugar such as nervousness, shakiness, fast heartbeat, sweating, or hunger. Check your blood sugar regularly as directed by your doctor and report any changes. If you experience symptoms of low blood sugar, you may raise your blood sugar by using glucose tablets/gel or eating a quick source of sugar such as table sugar, honey, or candy, or drink fruit juice or non-diet soda. Tell your doctor immediately about the reaction and the use of this product. To help prevent low blood sugar, eat meals on a regular schedule, and do not skip meals. This drug may make you dizzy. Do not drive, use machinery, or do any activity that requires alertness until you are sure you can perform such activities safely. Limit alcoholic beverages. This medication may make you more sensitive to the sun. Avoid prolonged sun exposure, tanning booths, and sunlamps. Use a sunscreen and wear protective clothing when outdoors. Caution is advised when using this drug in children because they may be more sensitive to its possible side effects (e.g., joint/tendon problems). Discuss the risks and benefits with the doctor. Kidney function declines as you grow older. This medication is removed by the kidneys. Therefore, older adults may be more sensitive to its side effects such as tendon problems (especially if they are also taking corticosteroids such as prednisone or hydrocortisone) or heart problems. Discuss the risks and benefits with your doctor. During , this medication should be used only when clearly needed. Discuss the risks and benefits with your doctor. This medication passes into breast milk. Consult your doctor before breast-feeding. DRUG INTERACTIONS: See also the How to Use section. The effects of some drugs can change if you take other drugs or herbal products at the same time. This can increase your risk for serious side effects or may cause your medications not to work correctly. These drug interactions are possible, but do not always occur. Your doctor or pharmacist can often prevent or manage interactions by changing how you use your medications or by close monitoring. To help your doctor and pharmacist give you the best care, be sure to tell your doctor and pharmacist about all the products you use (including prescription drugs, nonprescription drugs, and herbal products) before starting treatment with this product. While using this product, do not start, stop, or change the dosage of any other medicines you are using without your doctor's approval. Some products that may interact with this drug include: live bacterial vaccines (e.g., typhoid , BCG), "blood thinners" (e.g., warfarin), corticosteroids (e.g., prednisone, hydrocortisone), cyclosporine, drugs removed from your body by certain liver enzymes (such as clozapine, duloxetine, phenytoin, ropinirole, tacrine), drugs for diabetes (e.g., glyburide, insulin), methotrexate, nonsteroidal anti- inflammatory drugs (NSAIDs such as ibuprofen, naproxen), probenecid, sevelamer, strontium, tizanidine, theophylline, urinary alkalinizers (e.g., potassium/ sodium citrate). Many drugs besides ciprofloxacin may affect the heart rhythm ( QT prolongation), including amiodarone, dofetilide, quinidine, procainamide, sotalol, certain macrolide antibiotics (e.g., erythromycin, clarithromycin), and certain antipsychotic medications (e.g., pimozide, thioridazine, ziprasidone ), among others. Also report the use of drugs that might increase seizure risk when combined with this medication such as isoniazid (INH), phenothiazines (e.g. , chlorpromazine), or tricyclic antidepressants (e.g., amitriptyline), among others. Consult your doctor or pharmacist for details. Avoid drinking large amounts of beverages containing caffeine (coffee, tea, gab), eating large amounts of chocolate, or taking [id number] products that contain caffeine to keep you awake and alert. This drug may increase and/or prolong the effects of caffeine. This document does not contain all possible drug interactions. Keep a list of all the products you use. Share this list with your doctor and pharmacist to lessen your risk for serious medication problems. Prescriptions: If you are uninsured or have financial difficulties with filling your prescription(s), you may consider using a free pharmacy discount service such as [employer]) or [employer] ([employer]). These services allow you to search for a medication on your phone (or computer) and obtain a coupon that usually has a significant discount from the list amaya at a pharmacy. Your physician as well as [facility] does not have a financial relationship with either of these services. You may also wish to speak with your physician to determine if lower cost prescriptions are possible. Obtaining primary care: 1. [facility] provides pediatrics (children), family medicine (children, adults, and some obstetrical care), and internal medicine (adults). Further specialty care is also available. Same day appointments are available. They may be contacted at [phone] and are open Monday through Monday 8 AM to 5 PM. The [facility] are located at [facility], [address] [place] [address]. 2. [facility] [facility], internal medicine, women health, and further specialty care. [facility] may be contacted at [phone]. [facility] is located at [address] [place], [address]. 3. If you have health insurance, please also contact your insurer for a list of accepting providers under your policy, you may contact these providers for further health care. Occupational health: Work related injuries may consider following up with [facility], . Occupational health services are located at [address] [place] [id number] and are open Monday through Monday from 7: 30 am to 5:00 pm. Obstetrical and Gynecological Care: [facility], , Monday through Monday 8 AM to [address] [place] [address]. Eyecare: If you have an eye injury you should follow up with your business education teacher or with [facility], at [phone] or [phone] , they are located at [address] [place] [address]. Dental Care Clive Mejia DDS. [address] [facility], [place], [place]. Ph. [phone] Don Mejia DDS MS. [address] [facility] [address], [place], [place]. Ph. Juan Jose Hicks DDS. [address], [place], [place]. Ph. [phone] Teto Ash DDS. [address] [facility] [address] [place], [place]. Ph. [phone] Ankit Christianson DDS PC. [address] [place], [place]. Ph. Yevgeniy Hall DDS. [address] [facility]. Ph. [phone] [facility]. [address] [place], [place]. Ph. [phone] [facility]. [address], [place], [place]. Ph. [phone] [facility] [address] [place] [id number]. Ph. [facility]. [address] [place] [address] [address] [place]. Ph. [facility]. [address] [place] [address], [place], [place]. Ph. [phone] Sepsis Event Note - Evaluation Sepsis Screening Result: No Definite Risk - Focused Exam Vital Signs: Vital Signs Temp Pulse Resp BP Pulse Ox 06/23/19 19:37 36.6 C 82 14 104/57 L 97 06/23/19 16:38 37.9 C 104 H 20 102/73 98 Date Exam was Performed: 06/23/19 Time Exam was Performed: 19:47
== END 2019-06-23 19:59 | disposition home or self-care (01) ==
LOC: MW.ED 16:18
DX: N12 Tubulo-interstitial nephritis, not specified as acute or chronic (principal); D72.829 Elevated white blood cell count, unspecified
CPT/HCPCS: 36415; 71045; 80053; 81001; 83605; 83690; 84703; 85025; 87040; 87081; 87086; 87088; 87186; 87804; 87880; 96361; 96365; 96375; 99283; J0696; J1885; J2405; J7030

== ENCOUNTER 2020-05-06 09:23 | Observation (INO) | payer OTHER ==
[2020-05-06] MEDS ORDERED: Sodium Chloride 0.9% 1,000 ML IV ONE ×3 (10:08→15:22)
[2020-05-06] MEDS ORDERED: Ondansetron 4 MG/2 ML SDV IVPUSH ONE (10:08)
[2020-05-06] MEDS ORDERED: Ketorolac 30 MG/ML SDV IVPUSH ONE (10:18)
[2020-05-06 10:40] LABS: CARBON DIOXIDE,CO2 25.2 mmol/L (21.0-32.0); POTASSIUM,K 4.2 mmol/L (3.5-5.1)
--- NOTE | 2020-05-06 10:55 | EDM.PDOC ---
ED HPI GENERAL MEDICAL PROBLEM - General Chief Complaint: Genitourinary Problem Stated Complaint: UTI Time Seen by Provider: 05/06/20 10:07 Source of Information: Reports: Patient History Limitations: Reports: No Limitations - History of Present Illness INITIAL COMMENTS - FREE TEXT/NARRATIVE: HISTORY AND PHYSICAL: History of present illness: Patient is a 35-year-old female who presents to the emergency room with complaints of a 2-day history of headache, nausea, vomiting and generally feeling unwell. She states typically when she gets these symptoms she has a UTI. She states she has had several in the past 1 year and always presents similarly. Yesterday she went to Dr. Akers, he confirmed she has a UTI and gave her prescription for an Cipro and Zofran. She states she is initially able to take the medication although will vomit within 1 to 2 hours and she is concerned she is failing outpatient therapy. She also has some generalized low back pain; without flank pain. Patient denies any fever, chills, change in vision, syncope or near syncope. Denies any chest pain, shortness of breath or cough. Denies any abdominal pain, diarrhea, constipation or dysuria. Has not noted any blood in urine or stool. No concerns of , currently on her menstrual period. patient has been eating and drinking appropriately. Review of systems: As per history of present illness and below otherwise all systems reviewed and negative. Past medical history: As per history of present illness and as reviewed below otherwise noncontributory. Surgical history: As per history of present illness and as reviewed below otherwise noncontributory. Social history: See social history for further information Family history: As per history of present illness and as reviewed below otherwise noncontributory. Physical exam: General: Well developed and well nourished D5-year-old female. Alert and orientated x 3. Nontoxic in appearance and in no acute distress. Vital signs are stable and have been reviewed by me. Nursing notes were reviewed. HEENT: Atraumatic, normocephalic, pupils equal and reactive bilaterally, negative for conjunctival pallor or scleral icterus, mucous membranes moist, TMs normal bilaterally, throat clear, neck supple, nontender, trachea midline. No drooling or trismus noted. No meningeal signs. No hot potato voice noted. Lungs: Clear to auscultation, breath sounds equal bilaterally, chest nontender. Normal work of breathing, no accessory muscles used. Heart: S1S2, regular rate and rhythm without overt murmur Abdomen: Soft, nondistended, nontender. Negative for masses or hepatosplenomegaly. Right-sided costovertebral tenderness. Skin: Intact, warm, dry. No lesions or rashes noted. Hematologic: No petechiae or purpra. Mucosa appropriate color and normal nail bed color and refill. Extremities: Atraumatic, moves all extremities per self without difficulty or deficits, negative for cords or calf pain. Neurovascular unremarkable. Neuro: Awake, alert, oriented. Cranial nerves II through XII unremarkable. Cerebellum unremarkable. Motor and sensory unremarkable throughout. Exam nonfocal. Psychiatric: Mood and affect are appropriate. Normal thought process. Answering questions appropriately. Notes: Patient does meet sepsis criteria, Lactate and BC x 2 ordered. We will give patient fluids and give medications for her nausea and headache. Patient does have a UTI, she states she is currently on her menstrual period but I will do a CT of the abdomen and pelvis to rule out stone. IV antibiotics have been ordered. She states she does feel improved. We discussed the possibility of admission, she states she would really like to go home. She is agreeable to waiting to see what her CT scan shows and if she is able to keep fluids down with improved vital signs. CT shows too numerous to count renal stones bilaterally. However there are no stones within either ureter. There is perinephric stranding and perinephric fluid as well as periureteral fluid on the right and mild dilatation of the right ureter most likely due to a recent passage of stone. Unable to exclude infection of the right. I did inform patient of all diagnostics. She is now agreeable to staying for further care and management. She has been able to keep ice chips down while here. Dr. Michelle, Hospitalist on-call, consulted on this patient and she is agreeable to keeping her for observation with telemetry. Diagnostics: CBC, CMP, Lactate, UA, HCGU Therapeutics: IV fluids, Zofran, Rocephin Impression: Pyelonephritis, right Dehydration Plan: Observation admission with telemetry Definitive disposition and diagnosis as appropriate pending reevaluation and review of above. - Related Data Allergies Allergy/AdvReac Type Severity Reaction Status Date / Time No Known Allergies Allergy Verified 05/06/20 09:53 Home Meds: Home Meds Ciprofloxacin HCl [Cipro] 500 mg PO BID #19 tablet 06/23/19 [Rx] Non-Formulary Medication [NF Drug] 1 each PO ASDIRECTED PRN 05/06/20 [History] Past Medical History - Past Health History Medical/Surgical History: Denies Medical/Surgical History HEENT History: Reports: None Cardiovascular History: Reports: None Respiratory History: Reports: None Other Gastrointestinal History: constipation with Genitourinary History: Reports: Pyelonephritis Other Genitourinary History: current UTI, pyelonephritis, flank pain LINING BRUSHER History: Reports: Musculoskeletal History: Reports: None Neurological History: Reports: None Psychiatric History: Reports: None Endocrine/Metabolic History: Reports: None Hematologic History: Reports: None Immunologic History: Reports: None Oncologic (Cancer) History: Reports: None Dermatologic History: Reports: None - Infectious Disease History Infectious Disease History: Reports: Chicken Pox - Past Surgical History Female Surgical History: Reports: Other (See Below) Other Female Surgeries/Procedures: Kidney infection 07/2018 Social & Family History - Family History Family Medical History: No Pertinent Family History - Tobacco Use Tobacco Use Status *Q: Never Tobacco User - Caffeine Use Caffeine Use: Reports: None - Recreational Drug Use Recreational Drug Use: No ED ROS GENERAL - Review of Systems Review Of Systems: Comprehensive ROS is negative, except as noted in HPI. ED EXAM, RENAL/ - Physical Exam Exam: See Below (See dictation) Course - Vital Signs Last Recorded V/S: Last Vital Signs Temp 97.7 F 05/06/20 09:54 Pulse 106 H 05/06/20 09:54 Resp 19 05/06/20 09:54 BP 95/43 L 05/06/20 09:54 Pulse Ox 97 05/06/20 09:54 - Orders/Labs/Meds Orders: Active Orders 24 hr Category Date Time Status Admission Status [Patient Status] [ADT] Stat ADT 05/06/20 12:48 Active CORONAVIRUS COVID-19 PCR PHL Stat Lab 05/06/20 10:57 Ordered CULTURE BLOOD [BC] Stat Lab 05/06/20 10:21 Received CULTURE BLOOD [BC] Stat Lab 05/06/20 10:31 Received CULTURE URINE [RM] Stat Lab 05/06/20 09:52 Received Sodium Chloride 0.9% [Normal Saline] 1,000 ml Med 05/06/20 11:33 Active IV STAT Blood Culture x2 Reflex Set [OM.PC] Stat Oth 05/06/20 10:08 Ordered Medication Orders Sodium Chloride (Normal Saline) 1,000 mls @ 150 mls/hr IV STAT ONE Stop: 05/06/20 18:12 Last Admin: 05/06/20 11:59 Dose: 150 mls/hr Documented by: [id number] Labs: Laboratory Tests 05/06/20 05/06/20 05/06/20 Range/Units 09:50 09:50 09:50 WBC 17.41 H (4.0-11.0) K/uL RBC 4.64 (4.30-5.90) M/uL Hgb 14.0 (12.0-16.0) g/dL Hct 42.6 (36.0-46.0) % MCV 91.8 (80.0-98.0) fL MCH 30.2 (27.0-32.0) pg MCHC 32.9 (31.0-37.0) g/dL RDW Std Deviation 46.3 (28.0-62.0) fl RDW Coeff of Berta 14 (11.0-15.0) % Plt Count 213 (150-400) K/uL MPV 10.40 (7.40-12.00) fL Neut % (Auto) 88.3 H (48.0-80.0) % Lymph % (Auto) 6.4 L (16.0-40.0) % [place] % (Auto) 5.2 (0.0-15.0) % Eos % (Auto) 0.0 (0.0-7.0) % Baso % (Auto) 0.1 (0.0-1.5) % Neut # (Auto) 15.4 H (1.4-5.7) K/uL Lymph # (Auto) 1.1 (0.6-2.4) K/uL [place] # (Auto) 0.9 H (0.0-0.8) K/uL Eos # (Auto) 0.0 (0.0-0.7) K/uL Baso # (Auto) 0.0 (0.0-0.1) K/uL Nucleated RBC % 0.0 /100WBC Nucleated RBCs # 0 K/uL Lactate 1.7 (0.20-2.00) mmol/L Sodium 132 L (136-145) mmol/L Potassium 4.2 (3.5-5.1) mmol/L Chloride 96 L (98-107) mmol/L Carbon Dioxide 25.2 (21.0-32.0) mmol/L BUN 18 (7.0-18.0) mg/dL Creatinine 1.2 H (0.6-1.0) mg/dL Est Cr Clr Drug Dosing 58.57 mL/min Estimated GFR (MDRD) 51.1 ml/min Glucose 129 H (74-106) mg/dL Calcium 9.0 (8.5-10.1) mg/dL Total Bilirubin 1.1 H (0.2-1.0) mg/dL AST 14 L (15-37) IU/L ALT 14 (14-63) IU/L Alkaline Phosphatase 52 (46-116) U/L Total Protein 7.9 (6.4-8.2) g/dL Albumin 3.6 (3.4-5.0) g/dL Globulin 4.3 H (2.6-4.0) g/dL Albumin/Globulin Ratio 0.8 L (0.9-1.6) Urine Color Urine Appearance Urine pH (5.0-8.0) Ur Specific [place] (1.001-1.035) Urine Protein (NEGATIVE) mg/dL Urine Glucose (UA) (NEGATIVE) mg/dL Urine Ketones (NEGATIVE) mg/dL Urine Occult Blood (NEGATIVE) Urine Nitrite (NEGATIVE) Urine Bilirubin (NEGATIVE) Urine Urobilinogen (<2.0) EU/dL Ur Leukocyte Esterase (NEGATIVE) Urine RBC (0-2/HPF) Urine WBC (0-5/HPF) Ur Epithelial Cells (NONE-FEW) Urine Bacteria (NEGATIVE) Urine Mucus (NONE-MOD) Urine HCG, Qual (NEGATIVE) 05/06/20 05/06/20 Range/Units 09:52 09:52 WBC (4.0-11.0) K/uL RBC (4.30-5.90) M/uL Hgb (12.0-16.0) g/dL Hct (36.0-46.0) % MCV (80.0-98.0) fL MCH (27.0-32.0) pg MCHC (31.0-37.0) g/dL RDW Std Deviation (28.0-62.0) fl RDW Coeff of Berta (11.0-15.0) % Plt Count (150-400) K/uL MPV (7.40-12.00) fL Neut % (Auto) (48.0-80.0) % Lymph % (Auto) (16.0-40.0) % [place] % (Auto) (0.0-15.0) % Eos % (Auto) (0.0-7.0) % Baso % (Auto) (0.0-1.5) % Neut # (Auto) (1.4-5.7) K/uL Lymph # (Auto) (0.6-2.4) K/uL [place] # (Auto) (0.0-0.8) K/uL Eos # (Auto) (0.0-0.7) K/uL Baso # (Auto) (0.0-0.1) K/uL Nucleated RBC % /100WBC Nucleated RBCs # K/uL Lactate (0.20-2.00) mmol/L Sodium (136-145) mmol/L Potassium (3.5-5.1) mmol/L Chloride (98-107) mmol/L Carbon Dioxide (21.0-32.0) mmol/L BUN (7.0-18.0) mg/dL Creatinine (0.6-1.0) mg/dL Est Cr Clr Drug Dosing mL/min Estimated GFR (MDRD) ml/min Glucose (74-106) mg/dL Calcium (8.5-10.1) mg/dL Total Bilirubin (0.2-1.0) mg/dL AST (15-37) IU/L ALT (14-63) IU/L Alkaline Phosphatase (46-116) U/L Total Protein (6.4-8.2) g/dL Albumin (3.4-5.0) g/dL Globulin (2.6-4.0) g/dL Albumin/Globulin Ratio (0.9-1.6) Urine Color YELLOW Urine Appearance SLT CLOUDY Urine pH 5.5 (5.0-8.0) Ur Specific [place] 1.025 (1.001-1.035) Urine Protein TRACE H (NEGATIVE) mg/dL Urine Glucose (UA) NEGATIVE (NEGATIVE) mg/dL Urine Ketones 15 H (NEGATIVE) mg/dL Urine Occult Blood LARGE H (NEGATIVE) Urine Nitrite NEGATIVE (NEGATIVE) Urine Bilirubin NEGATIVE (NEGATIVE) Urine Urobilinogen 0.2 (<2.0) EU/dL Ur Leukocyte Esterase SMALL H (NEGATIVE) Urine RBC 10-20 (0-2/HPF) Urine WBC 20-30 (0-5/HPF) Ur Epithelial Cells MODERATE (NONE-FEW) Urine Bacteria 1+ H (NEGATIVE) Urine Mucus LIGHT (NONE-MOD) Urine HCG, Qual NEGATIVE (NEGATIVE) Meds: Medications Generic Name Dose Route Start Last Admin Trade Name Freq PRN Reason Stop Dose Admin Sodium Chloride 1,000 mls @ 150 mls/hr 05/06/20 11:33 05/06/20 11:59 Normal Saline IV 05/06/20 18:12 150 mls/hr STAT ONE Administration Discontinued Medications Generic Name Dose Route Start Last Admin Trade Name Freq PRN Reason Stop Dose Admin Sodium Chloride 1,000 mls @ 999 mls/hr 05/06/20 10:08 05/06/20 10:20 Normal Saline IV 05/06/20 11:08 999 mls/hr STAT ONE Administration Ceftriaxone Sodium/Dextrose 1 50 mls @ 100 mls/hr 05/06/20 10:56 05/06/20 11:10 gm/ Premix IV 05/06/20 11:25 100 mls/hr ONETIME ONE Administration Ketorolac Tromethamine 30 mg 05/06/20 10:18 05/06/20 10:24 Toradol IVPUSH 05/06/20 10:19 30 mg ONETIME ONE Administration Ondansetron HCl 4 mg 05/06/20 10:08 05/06/20 10:20 Zofran IVPUSH 05/06/20 10:09 4 mg ONETIME ONE Administration Departure - Departure Time of Disposition: 13:07 Disposition: Refer to Observation Clinical Impression: Dehydration, Pyelonephritis - Discharge Information Referrals: PCP,None [Primary Care Provider] - Forms: ED Department Discharge Sepsis Event Note (ED) - Evaluation Sepsis Screening Result: Possible Severe Sepsis Risk - Focused Exam Vital Signs: Vital Signs Temp Pulse Resp BP Pulse Ox 05/06/20 09:54 97.7 F 106 H 19 95/43 L 97 - My Orders Last 24 Hours: My Active Orders 05/06/20 09:52 CULTURE URINE [RM] Stat 05/06/20 10:08 Blood Culture x2 Reflex Set [OM.PC] Stat 05/06/20 10:21 CULTURE BLOOD [BC] Stat 05/06/20 10:31 CULTURE BLOOD [BC] Stat 05/06/20 10:57 CORONAVIRUS COVID-19 PCR PHL Stat 05/06/20 11:33 Sodium Chloride 0.9% [Normal Saline] 1,000 ml IV STAT 05/06/20 12:48 Admission Status [Patient Status] [ADT] Stat - Assessment/Plan Last 24 Hours: My Active Orders 05/06/20 09:52 CULTURE URINE [RM] Stat 05/06/20 10:08 Blood Culture x2 Reflex Set [OM.PC] Stat 05/06/20 10:21 CULTURE BLOOD [BC] Stat 05/06/20 10:31 CULTURE BLOOD [BC] Stat 05/06/20 10:57 CORONAVIRUS COVID-19 PCR PHL Stat 05/06/20 11:33 Sodium Chloride 0.9% [Normal Saline] 1,000 ml IV STAT 05/06/20 12:48 Admission Status [Patient Status] [ADT] Stat
[2020-05-06] MEDS ORDERED: cefTRIAXone 1 GM in Premix Bag 1 BAG IV ONE ×2 (10:56→15:04)
--- NOTE | 2020-05-06 12:39 | CT ---
INDICATION: UTI with hematuria COMPARISON: None TECHNIQUE: CT examination of the abdomen and pelvis was performed without intravenous contrast. Thin section axial images were obtained from the lung bases through the pubic symphysis. Oral contrast was not administered. Please note that all CT scans at this facility use dose modulation, iterative reconstruction, and/or weight-based dosing when appropriate to reduce radiation dose to as low as reasonably achievable. FINDINGS: LUNG BASES: The lung bases as visualized appear normal.The heart size is normal at the lung bases. LIVER/BILIARY SYSTEM:The liver is normal in size and configuration given the lack of intravenous contrast. There is no visible focal mass and there is no intra- or extra hepatic biliary ductal dilatation.The gall bladder appears normal. ADRENALS: Normal non-contrast appearance KIDNEYS, URETERS and BLADDER:There are too numerous to count bilateral renal calculi in the setting of a medullary nephrocalcinosis pattern. This is probably due to renal tubular ectasia. The calculi range in size from about 1 millimeter to about 1 centimeter. The 1 centimeter calculus is located at the lower pole on the right. There is perinephric stranding and perinephric fluid as well as periureteric fluid on the right with mild dilation of the right ureter. However, I see no calculus within the course of either ureter. The findings can be due to recent passage of a stone or obstructive uropathy due to a noncalcified calculus or other cause. I cannot exclude infection on the right. I do not think infection alone could account for the appearance of the right kidney and the right ureter SPLEEN:Normal non-contrast appearance. PANCREAS: Normal non-contrast appearance. RETROPERITONEUM and MESENTERY: There is no mass, adenopathy or aortic aneurysm. GASTROINTESTINAL SYSTEM: There is no evidence of diverticulitis, colitis, mechanical obstruction, or appendicitis. The small bowel as visualized appears normal. PELVIS: No mass, adenopathy or free fluid.IUD in the uterus OSSEOUS STRUCTURES and ABDOMINAL WALL: There is an age-appropriate appearance of the osseous structures.No significant abdominal wall defect. IMPRESSION: 1. Too numerous to count renal calculi bilaterally. 2. Enlarged edematous right kidney with a dilated right ureter and perinephric and periureteric inflammatory change and fluid. No prateek collection. 3. I do not see the etiology of the dilated right ureter. No visible calculus in the right ureter. This is most likely due to recent passage of a stone though noncalcified stone or other cause of obstructive uropathy on the right is possible. 4. I cannot exclude infection on the right. Infection alone is not likely to produce the appearance on the right, namely the dilation of the ureter. Please note that all CT scans at this facility use dose modulation, iterative reconstruction, and/or weight-based dosing when appropriate to reduce radiation dose to as low as reasonably achievable. Dictated by Parker Dixon MD @ May 06 2020 12:28PM Signed by Dr. Parker Dixon @ May 06 2020 12:38PM
--- NOTE | 2020-05-06 15:04 | PCM.HP.2 ---
<ErwinRodriguez hunter - Last Filed: 05/06/20 15:16> H&P History of Present Illness - General Date of Service: 05/06/20 Admit Problem/Dx: Admission Diagnosis/Problem Admission Diagnosis/Problem Pyelonephritis - Related Data Allergies/Adverse Reactions: Allergies Allergy/AdvReac Type Severity Reaction Status Date / Time No Known Allergies Allergy Verified 05/06/20 15:15 Home Medications: Home Meds Ciprofloxacin HCl [Cipro] 500 mg PO BID #19 tablet 06/23/19 [Rx] Non-Formulary Medication [NF Drug] 1 each PO ASDIRECTED PRN 05/06/20 [History] Past Medical History - Past Health History Medical/Surgical History: Denies Medical/Surgical History HEENT History: Reports: None Cardiovascular History: Reports: None Respiratory History: Reports: None Other Gastrointestinal History: constipation with Genitourinary History: Reports: Pyelonephritis Other Genitourinary History: current UTI, pyelonephritis, flank pain [employer] History: Reports: Musculoskeletal History: Reports: None Neurological History: Reports: None Psychiatric History: Reports: None Endocrine/Metabolic History: Reports: None Hematologic History: Reports: None Immunologic History: Reports: None Oncologic (Cancer) History: Reports: None Dermatologic History: Reports: None - Infectious Disease History Infectious Disease History: Reports: Chicken Pox - Past Surgical History Female Surgical History: Reports: Other (See Below) Other Female Surgeries/Procedures: Kidney infection 07/2018 Social & Family History - Family History Family Medical History: No Pertinent Family History - Tobacco Use Tobacco Use Status *Q: Never Tobacco User Used Tobacco, but Quit: No Second Hand Smoke Exposure: No - Caffeine Use Caffeine Use: Reports: Coffee - Recreational Drug Use Recreational Drug Use: No H&P Review of Systems - Review of Systems: Review Of Systems: See Below General: Reports: Chills, Fatigue. Denies: Fever Pulmonary: Denies: Shortness of Breath, Wheezing, Cough Cardiovascular: Denies: Chest Pain, Palpitations Gastrointestinal: Reports: Decreased Appetite, Nausea, Vomiting. Denies: Abdominal Pain, Diarrhea Genitourinary: Denies: Dysuria, Frequency, Burning, Hematuria Musculoskeletal: Reports: Back Pain Neurological: Reports: Headache. Denies: Confusion, Dizziness Exam - Exam Exam: See Below - Vital Signs Vital Signs: Last Vital Signs Temp 97.7 F 05/06/20 09:54 Pulse 86 05/06/20 12:49 Resp 17 05/06/20 11:49 BP 99/56 L 05/06/20 12:49 Pulse Ox 98 05/06/20 12:49 Weight: 59.012 kg - Exam General: Alert, Oriented, Cooperative Lungs: Clear to Auscultation, Normal Respiratory Effort Cardiovascular: Regular Rate, Regular Rhythm GI/Abdominal Exam: Normal Bowel Sounds, Soft, Non-Tender Back Exam: CVA Tenderness (R) Extremities: No Pedal Edema Neuro Extensive - Mental Status: Alert, Oriented x3 Psychiatric: Alert - Patient Data Lab Results Last 24 hrs: Laboratory Results - last 24 hr 05/06/20 05/06/20 05/06/20 Range/Units 09:50 09:50 09:50 WBC 17.41 H (4.0-11.0) K/uL RBC 4.64 (4.30-5.90) M/uL Hgb 14.0 (12.0-16.0) g/dL Hct 42.6 (36.0-46.0) % MCV 91.8 (80.0-98.0) fL MCH 30.2 (27.0-32.0) pg MCHC 32.9 (31.0-37.0) g/dL RDW Std Deviation 46.3 (28.0-62.0) fl RDW Coeff of Berta 14 (11.0-15.0) % Plt Count 213 (150-400) K/uL MPV 10.40 (7.40-12.00) fL Neut % (Auto) 88.3 H (48.0-80.0) % Lymph % (Auto) 6.4 L (16.0-40.0) % Josephine % (Auto) 5.2 (0.0-15.0) % Eos % (Auto) 0.0 (0.0-7.0) % Baso % (Auto) 0.1 (0.0-1.5) % Neut # (Auto) 15.4 H (1.4-5.7) K/uL Lymph # (Auto) 1.1 (0.6-2.4) K/uL Josephine # (Auto) 0.9 H (0.0-0.8) K/uL Eos # (Auto) 0.0 (0.0-0.7) K/uL Baso # (Auto) 0.0 (0.0-0.1) K/uL Nucleated RBC % 0.0 /100WBC Nucleated RBCs # 0 K/uL Lactate 1.7 (0.20-2.00) mmol/L Sodium 132 L (136-145) mmol/L Potassium 4.2 (3.5-5.1) mmol/L Chloride 96 L (98-107) mmol/L Carbon Dioxide 25.2 (21.0-32.0) mmol/L BUN 18 (7.0-18.0) mg/dL Creatinine 1.2 H (0.6-1.0) mg/dL Est Cr Clr Drug Dosing 58.57 mL/min Estimated GFR (MDRD) 51.1 ml/min Glucose 129 H (74-106) mg/dL Calcium 9.0 (8.5-10.1) mg/dL Total Bilirubin 1.1 H (0.2-1.0) mg/dL AST 14 L (15-37) IU/L ALT 14 (14-63) IU/L Alkaline Phosphatase 52 (46-116) U/L Total Protein 7.9 (6.4-8.2) g/dL Albumin 3.6 (3.4-5.0) g/dL Globulin 4.3 H (2.6-4.0) g/dL Albumin/Globulin Ratio 0.8 L (0.9-1.6) Urine Color Urine Appearance Urine pH (5.0-8.0) Ur Specific Edmond (1.001-1.035) Urine Protein (NEGATIVE) mg/dL Urine Glucose (UA) (NEGATIVE) mg/dL Urine Ketones (NEGATIVE) mg/dL Urine Occult Blood (NEGATIVE) Urine Nitrite (NEGATIVE) Urine Bilirubin (NEGATIVE) Urine Urobilinogen (<2.0) EU/dL Ur Leukocyte Esterase (NEGATIVE) Urine RBC (0-2/HPF) Urine WBC (0-5/HPF) Ur Epithelial Cells (NONE-FEW) Urine Bacteria (NEGATIVE) Urine Mucus (NONE-MOD) Urine HCG, Qual (NEGATIVE) SARS-CoV-2 RNA (CARLOS A) (NEGATIVE) 05/06/20 05/06/20 05/06/20 Range/Units 09:52 09:52 12:55 WBC (4.0-11.0) K/uL RBC (4.30-5.90) M/uL Hgb (12.0-16.0) g/dL Hct (36.0-46.0) % MCV (80.0-98.0) fL MCH (27.0-32.0) pg MCHC (31.0-37.0) g/dL RDW Std Deviation (28.0-62.0) fl RDW Coeff of Berta (11.0-15.0) % Plt Count (150-400) K/uL MPV (7.40-12.00) fL Neut % (Auto) (48.0-80.0) % Lymph % (Auto) (16.0-40.0) % Josephine % (Auto) (0.0-15.0) % Eos % (Auto) (0.0-7.0) % Baso % (Auto) (0.0-1.5) % Neut # (Auto) (1.4-5.7) K/uL Lymph # (Auto) (0.6-2.4) K/uL Josephine # (Auto) (0.0-0.8) K/uL Eos # (Auto) (0.0-0.7) K/uL Baso # (Auto) (0.0-0.1) K/uL Nucleated RBC % /100WBC Nucleated RBCs # K/uL Lactate (0.20-2.00) mmol/L Sodium (136-145) mmol/L Potassium (3.5-5.1) mmol/L Chloride (98-107) mmol/L Carbon Dioxide (21.0-32.0) mmol/L BUN (7.0-18.0) mg/dL Creatinine (0.6-1.0) mg/dL Est Cr Clr Drug Dosing mL/min Estimated GFR (MDRD) ml/min Glucose (74-106) mg/dL Calcium (8.5-10.1) mg/dL Total Bilirubin (0.2-1.0) mg/dL AST (15-37) IU/L ALT (14-63) IU/L Alkaline Phosphatase (46-116) U/L Total Protein (6.4-8.2) g/dL Albumin (3.4-5.0) g/dL Globulin (2.6-4.0) g/dL Albumin/Globulin Ratio (0.9-1.6) Urine Color YELLOW Urine Appearance SLT CLOUDY Urine pH 5.5 (5.0-8.0) Ur Specific Edmond 1.025 (1.001-1.035) Urine Protein TRACE H (NEGATIVE) mg/dL Urine Glucose (UA) NEGATIVE (NEGATIVE) mg/dL Urine Ketones 15 H (NEGATIVE) mg/dL Urine Occult Blood LARGE H (NEGATIVE) Urine Nitrite NEGATIVE (NEGATIVE) Urine Bilirubin NEGATIVE (NEGATIVE) Urine Urobilinogen 0.2 (<2.0) EU/dL Ur Leukocyte Esterase SMALL H (NEGATIVE) Urine RBC 10-20 (0-2/HPF) Urine WBC 20-30 (0-5/HPF) Ur Epithelial Cells MODERATE (NONE-FEW) Urine Bacteria 1+ H (NEGATIVE) Urine Mucus LIGHT (NONE-MOD) Urine HCG, Qual NEGATIVE (NEGATIVE) SARS-CoV-2 RNA (CARLOS A) NEGATIVE (NEGATIVE) Result Diagrams: 05/06/20 09:50 05/06/20 09:50 Sepsis Event Note - Evaluation Sepsis Screening Result: Possible Severe Sepsis Risk - Focused Exam Vital Signs: Vital Signs Temp Pulse Resp BP Pulse Ox 05/06/20 12:49 86 99/56 L 98 05/06/20 12:19 81 100/56 L 95 05/06/20 11:49 86 17 98/53 L 94 L 05/06/20 09:54 97.7 F 106 H 19 95/43 L 97 - Problem List (1) Pyelonephritis SNOMED Code(s): 56857078 ICD Code: N12 - TUBULO-INTERSTITIAL NEPHRITIS, NOT SPCF ACUTE OR CHRONIC Status: Acute Current Visit: Yes Problem List Initiated/Reviewed/Updated: Yes Orders Last 24hrs: Active Orders 24 hr Category Date Time Status Admission Status [Patient Status] [ADT] Stat ADT 05/06/20 12:48 Active CULTURE BLOOD [BC] Stat Lab 05/06/20 10:21 Received CULTURE BLOOD [BC] Stat Lab 05/06/20 10:31 Received CULTURE URINE [RM] Stat Lab 05/06/20 09:52 Received Acetaminophen [TylenoL] Med 05/06/20 14:36 Active 650 mg PO Q4H PRN Sodium Chloride 0.9% [Normal Saline] 1,000 ml Med 05/06/20 11:33 Active IV STAT Blood Culture x2 Reflex Set [OM.PC] Stat Oth 05/06/20 10:08 Ordered Medication Orders Acetaminophen (Tylenol) 650 mg PO Q4H PRN PRN Reason: Pain Sodium Chloride (Normal Saline) 1,000 mls @ 150 mls/hr IV STAT ONE Stop: 05/06/20 18:12 Last Admin: 05/06/20 11:59 Dose: 150 mls/hr Documented by: [id number] Assessment/Plan Comment:: Pyelonephritis- Ceftriaxone 2g QD, Zofran 4mg PRN, NS 125/ML HR, Tylenol 650 mg Q4HR <Wanda Michelle - Last Filed: 05/07/20 12:21> H&P History of Present Illness - General Admit Problem/Dx: Admission Diagnosis/Problem Admission Diagnosis/Problem Pyelonephritis Exam - Vital Signs Vital Signs: Last Vital Signs Temp 37.3 C 05/07/20 08:00 Pulse 77 05/07/20 08:00 Resp 16 05/07/20 08:00 BP 115/72 05/07/20 08:00 Pulse Ox 99 05/07/20 08:00 - Patient Data Lab Results Last 24 hrs: Laboratory Results - last 24 hr 05/06/20 05/07/20 05/07/20 Range/Units 12:55 05:04 05:04 WBC 11.53 H (4.0-11.0) K/uL RBC 3.94 L (4.30-5.90) M/uL Hgb 11.6 L (12.0-16.0) g/dL Hct 36.4 (36.0-46.0) % MCV 92.4 (80.0-98.0) fL MCH 29.4 (27.0-32.0) pg MCHC 31.9 (31.0-37.0) g/dL RDW Std Deviation 46.5 (28.0-62.0) fl RDW Coeff of Berta 14 (11.0-15.0) % Plt Count 183 (150-400) K/uL MPV 10.70 (7.40-12.00) fL Neut % (Auto) 83.4 H (48.0-80.0) % Lymph % (Auto) 9.2 L (16.0-40.0) % Josephine % (Auto) 7.3 (0.0-15.0) % Eos % (Auto) 0.0 (0.0-7.0) % Baso % (Auto) 0.1 (0.0-1.5) % Neut # (Auto) 9.6 H (1.4-5.7) K/uL Lymph # (Auto) 1.1 (0.6-2.4) K/uL Josephine # (Auto) 0.8 (0.0-0.8) K/uL Eos # (Auto) 0.0 (0.0-0.7) K/uL Baso # (Auto) 0.0 (0.0-0.1) K/uL Nucleated RBC % 0.0 /100WBC Nucleated RBCs # 0 K/uL Sodium 135 L (136-145) mmol/L Potassium 4.6 (3.5-5.1) mmol/L Chloride 102 (98-107) mmol/L Carbon Dioxide 24.6 (21.0-32.0) mmol/L BUN 15 (7.0-18.0) mg/dL Creatinine 1.0 (0.6-1.0) mg/dL Est Cr Clr Drug Dosing 73.15 mL/min Estimated GFR (MDRD) > 60.0 ml/min Glucose 110 H (74-106) mg/dL Calcium 8.1 L (8.5-10.1) mg/dL SARS-CoV-2 RNA (CARLOS A) NEGATIVE (NEGATIVE) Result Diagrams: 05/07/20 05:04 05/07/20 05:04 Jamal Results Last 24 hrs: Microbiology 05/06/20 10:31 Aerobic Blood Culture - Preliminary Blood - Venous - Lab Draw NO GROWTH AFTER 1 DAY Anaerobic Blood Culture - Preliminary NO GROWTH AFTER 1 DAY 05/06/20 10:21 Aerobic Blood Culture - Preliminary Blood - Venous NO GROWTH AFTER 1 DAY Anaerobic Blood Culture - Preliminary NO GROWTH AFTER 1 DAY Sepsis Event Note - Focused Exam Vital Signs: Vital Signs Temp Pulse Resp BP Pulse Ox 05/07/20 08:00 37.3 C 77 16 115/72 99 05/07/20 03:53 36.5 C 97 16 103/57 L 95 Orders Last 24hrs: Active Orders 24 hr Category Date Time Status Admission Status [Patient Status] [ADT] Stat ADT 05/06/20 12:48 Active Antiembolic Devices [RC] PER UNIT ROUTINE Care 05/06/20 15:14 Active Oxygen Therapy [RC] PRN Care 05/06/20 15:13 Active VTE/DVT Education [RC] PER UNIT ROUTINE Care 05/06/20 15:13 Active Vital Signs [RC] Q4H Care 05/06/20 15:13 Active Regular Diet [DIET] Diet 05/06/20 Dinner Active Acetaminophen [TylenoL] Med 05/06/20 14:36 Active 650 mg PO Q4H PRN Ketorolac [Toradol] Med 05/07/20 09:58 Active 15 mg IVPUSH Q6H PRN Ondansetron [Zofran] Med 05/06/20 19:19 Active 4 mg IVPUSH Q4H PRN Sodium Chloride 0.9% [Normal Saline] 1,000 ml Med 05/07/20 08:00 Active IV ASDIRECTED cefTRIAXone [Rocephin in Dextrose,Iso-Osm 2 GM/50 ML] 2 Med 05/07/20 09:00 Active gm Premix Bag 1 bag IV Q24H Sequential Compression Device [OM.PC] Per Unit Routine Oth 05/06/20 15:13 Ordered Code Status [Resuscitation Status] Routine Resus Stat 05/06/20 15:46 Ordered Medication Orders Acetaminophen (Tylenol) 650 mg PO Q4H PRN PRN Reason: Pain Last Admin: 05/07/20 10:10 Dose: 650 mg Documented by: Admin: 05/07/20 02:32 Dose: 650 mg Documented by: BRYCE Ceftriaxone Sodium/Dextrose 2 (gm/ Premix) 50 mls @ 100 mls/hr IV Q24H [facility] Last Admin: 05/07/20 10:10 Dose: 100 mls/hr Documented by: GINETTE Sodium Chloride (Normal Saline) 1,000 mls @ 125 mls/hr IV ASDIRECTED [facility] Ketorolac Tromethamine (Toradol) 15 mg IVPUSH Q6H PRN PRN Reason: Pain Stop: 05/12/20 09:58 Last Admin: 05/07/20 10:13 Dose: 15 mg Documented by: GINETTE Ondansetron HCl (Zofran) 4 mg IVPUSH Q4H PRN PRN Reason: Nausea/Vomiting Last Admin: 05/07/20 10:12 Dose: 4 mg Documented by: Admin: 05/07/20 01:37 Dose: 4 mg Documented by: BRYCE Assessment/Plan Comment:: I have seen and evaluated the patient and agree with the residents note unless specified in my note
[2020-05-06] MEDS ORDERED: Sodium Chloride 0.9% 1,000 ML IV SCH (15:15)
[2020-05-06] MEDS ORDERED: Lactated Ringers 1,000 ML IV ONE (15:18)
[2020-05-06] MEDS ORDERED: Ondansetron 4 MG/2 ML SDV IVPUSH PRN (15:20)
[2020-05-06] MEDS: Morphine 2 MG/ML SYRINGE IVPUSH PRN ×2 (15:41→21:41)
[2020-05-07] MEDS: Ondansetron 4 MG/2 ML SDV IVPUSH PRN ×3 (01:37→17:41)
[2020-05-07] MEDS: Acetaminophen 325 MG Tab PO PRN ×4 (02:32→20:45)
[2020-05-07 06:22] LABS: BLOOD UREA NITROGEN,BUN 15 mg/dL (7.0-18.0); CARBON DIOXIDE,CO2 24.6 mmol/L (21.0-32.0); CHLORIDE,CL 102 mmol/L (98-107); GLUCOSE RANDOM 110 mg/dL (74-106); POTASSIUM,K 4.6 mmol/L (3.5-5.1); SODIUM,NA 135 mmol/L (136-145)
[2020-05-07] MEDS: cefTRIAXone 2 GM in Premix Bag 1 BAG IV SCH (10:10)
[2020-05-07] MEDS: Ketorolac 15 MG/ML SDV IVPUSH PRN ×2 (10:13→17:44)
--- NOTE | 2020-05-07 12:14 | PCM.PN ---
<Rodriguez Rose - Last Filed: 05/07/20 12:15> - General Info Date of Service: 05/07/20 Subjective Update: Patient sleeping this morning but complains of headache. Denies abdominal, back or flank pain. States nausea and vomiting have improved. - Review of Systems General: Denies: Fever, Fatigue, Chills Pulmonary: Denies: Shortness of Breath, Pleuritic Chest Pain Cardiovascular: Denies: Chest Pain, Palpitations, Dyspnea on Exertion Gastrointestinal: Denies: Abdominal Pain, Nausea, Vomiting Genitourinary: Denies: Dysuria Musculoskeletal: Reports: Shoulder Pain. Denies: Back Pain Neurological: Reports: Headache - Patient Data Vitals - Most Recent: Last Vital Signs Temp 99.2 F 05/07/20 08:00 Pulse 77 05/07/20 08:00 Resp 16 05/07/20 08:00 BP 115/72 05/07/20 08:00 Pulse Ox 99 05/07/20 08:00 Weight - Most Recent: 59.012 kg I&O - Last 24 Hours: Intake & Output 05/06/20 05/07/20 05/07/20 22:59 06:59 14:59 Intake Total 1100 650 Output Total 500 1900 Balance 600 -1250 Lab Results Last 24 Hours: Laboratory Results - last 24 hr 05/06/20 05/07/20 05/07/20 Range/Units 12:55 05:04 05:04 WBC 11.53 H (4.0-11.0) K/uL RBC 3.94 L (4.30-5.90) M/uL Hgb 11.6 L (12.0-16.0) g/dL Hct 36.4 (36.0-46.0) % MCV 92.4 (80.0-98.0) fL MCH 29.4 (27.0-32.0) pg MCHC 31.9 (31.0-37.0) g/dL RDW Std Deviation 46.5 (28.0-62.0) fl RDW Coeff of Berta 14 (11.0-15.0) % Plt Count 183 (150-400) K/uL MPV 10.70 (7.40-12.00) fL Neut % (Auto) 83.4 H (48.0-80.0) % Lymph % (Auto) 9.2 L (16.0-40.0) % Dane % (Auto) 7.3 (0.0-15.0) % Eos % (Auto) 0.0 (0.0-7.0) % Baso % (Auto) 0.1 (0.0-1.5) % Neut # (Auto) 9.6 H (1.4-5.7) K/uL Lymph # (Auto) 1.1 (0.6-2.4) K/uL Dane # (Auto) 0.8 (0.0-0.8) K/uL Eos # (Auto) 0.0 (0.0-0.7) K/uL Baso # (Auto) 0.0 (0.0-0.1) K/uL Nucleated RBC % 0.0 /100WBC Nucleated RBCs # 0 K/uL Sodium 135 L (136-145) mmol/L Potassium 4.6 (3.5-5.1) mmol/L Chloride 102 (98-107) mmol/L Carbon Dioxide 24.6 (21.0-32.0) mmol/L BUN 15 (7.0-18.0) mg/dL Creatinine 1.0 (0.6-1.0) mg/dL Est Cr Clr Drug Dosing 73.15 mL/min Estimated GFR (MDRD) > 60.0 ml/min Glucose 110 H (74-106) mg/dL Calcium 8.1 L (8.5-10.1) mg/dL SARS-CoV-2 RNA (CARLOS A) NEGATIVE (NEGATIVE) Jamal Results Last 24 Hours: Microbiology 05/06/20 10:31 Aerobic Blood Culture - Preliminary Blood - Venous - Lab Draw NO GROWTH AFTER 1 DAY Anaerobic Blood Culture - Preliminary NO GROWTH AFTER 1 DAY 05/06/20 10:21 Aerobic Blood Culture - Preliminary Blood - Venous NO GROWTH AFTER 1 DAY Anaerobic Blood Culture - Preliminary NO GROWTH AFTER 1 DAY Med Orders - Current: Current Medications Acetaminophen (Tylenol) 650 mg PO Q4H PRN PRN Reason: Pain Last Admin: 05/07/20 10:10 Dose: 650 mg Documented by: Ceftriaxone Sodium/Dextrose 2 (gm/ Premix) 50 mls @ 100 mls/hr IV Q24H [facility] Last Admin: 05/07/20 10:10 Dose: 100 mls/hr Documented by: Sodium Chloride (Normal Saline) 1,000 mls @ 125 mls/hr IV ASDIRECTED [facility] Ketorolac Tromethamine (Toradol) 15 mg IVPUSH Q6H PRN PRN Reason: Pain Stop: 05/12/20 09:58 Last Admin: 05/07/20 10:13 Dose: 15 mg Documented by: Ondansetron HCl (Zofran) 4 mg IVPUSH Q4H PRN PRN Reason: Nausea/Vomiting Last Admin: 05/07/20 10:12 Dose: 4 mg Documented by: Discontinued Medications Sodium Chloride (Normal Saline) 1,000 mls @ 999 mls/hr IV STAT ONE Stop: 05/06/20 11:08 Last Admin: 05/06/20 10:20 Dose: 999 mls/hr Documented by: Ceftriaxone Sodium/Dextrose 1 (gm/ Premix) 50 mls @ 100 mls/hr IV ONETIME ONE Stop: 05/06/20 11:25 Last Admin: 05/06/20 11:10 Dose: 100 mls/hr Documented by: Sodium Chloride (Normal Saline) 1,000 mls @ 150 mls/hr IV STAT ONE Stop: 05/06/20 18:12 Last Admin: 05/06/20 11:59 Dose: 150 mls/hr Documented by: Ceftriaxone Sodium/Dextrose 1 (gm/ Premix) 50 mls @ 100 mls/hr IV ONETIME ONE Stop: 05/06/20 15:33 Last Admin: 05/06/20 16:42 Dose: 100 mls/hr Documented by: Sodium Chloride (Normal Saline) 1,000 mls @ 125 mls/hr IV ASDIRECTED [facility] Stop: 05/06/20 23:14 Last Admin: 05/06/20 18:25 Dose: 125 mls/hr Documented by: Lactated Ringer's (Ringers, Lactated) 1,000 mls @ 999 mls/hr IV .BOLUS ONE Stop: 05/06/20 16:18 Last Admin: 05/06/20 15:24 Dose: 999 mls/hr Documented by: Sodium Chloride (Normal Saline) 1,000 mls @ 999 mls/hr IV .Bolus ONE Stop: 05/06/20 16:22 Last Admin: 05/06/20 16:44 Dose: Not Given Documented by: Ketorolac Tromethamine (Toradol) 30 mg IVPUSH ONETIME ONE Stop: 05/06/20 10:19 Last Admin: 05/06/20 10:24 Dose: 30 mg Documented by: Morphine Sulfate (Morphine) 2 mg IVPUSH Q4H PRN PRN Reason: Pain (severe 7-10) Last Admin: 05/06/20 21:41 Dose: 2 mg Documented by: Ondansetron HCl (Zofran) 4 mg IVPUSH ONETIME ONE Stop: 05/06/20 10:09 Last Admin: 05/06/20 10:20 Dose: 4 mg Documented by: Ondansetron HCl (Zofran) 4 mg IVPUSH Q6H PRN PRN Reason: Nausea/Vomiting Last Admin: 05/06/20 15:41 Dose: 4 mg Documented by: - Exam General: Alert, Oriented, Mild Distress Lungs: Clear to Auscultation, Normal Respiratory Effort Cardiovascular: Regular Rate, Regular Rhythm GI/Abdominal Exam: Normal Bowel Sounds, Soft, Non-Tender Back Exam: No: CVA Tenderness (L), CVA Tenderness (R) Sepsis Event Note - Evaluation Sepsis Screening Result: Sepsis Risk - Focused Exam Vital Signs: Vital Signs Temp Pulse Resp BP Pulse Ox 05/07/20 08:00 99.2 F 77 16 115/72 99 05/07/20 03:53 97.7 F 97 16 103/57 L 95 - Problem List & Annotations (1) Pyelonephritis SNOMED Code(s): 00965582 Code(s): N12 - TUBULO-INTERSTITIAL NEPHRITIS, NOT SPCF ACUTE OR CHRONIC Status: Acute Current Visit: Yes - Problem List Review Problem List Initiated/Reviewed/Updated: Yes - My Orders Last 24 Hours: My Active Orders 05/06/20 14:36 Acetaminophen [TylenoL] 650 mg PO Q4H PRN 05/06/20 15:13 Oxygen Therapy [RC] PRN VTE/DVT Education [RC] PER UNIT ROUTINE Vital Signs [RC] Q4H Sequential Compression Device [OM.PC] Per Unit Routine 05/06/20 15:14 Antiembolic Devices [RC] PER UNIT ROUTINE 05/06/20 15:46 Code Status [Resuscitation Status] Routine 05/06/20 Dinner Regular Diet [DIET] 05/06/20 19:19 Ondansetron [Zofran] 4 mg IVPUSH Q4H PRN 05/07/20 08:00 Sodium Chloride 0.9% [Normal Saline] 1,000 ml IV ASDIRECTED 05/07/20 09:00 cefTRIAXone [Rocephin in Dextrose,Iso-Osm 2 GM/50 ML] 2 gm Premix Bag 1 bag IV Q24H - Plan Plan:: Pyelonephritis- Ceftriaxone 2g QD, Zofran 4mg PRN, NS 125/ML HR, Tylenol 650 mg Q4HR, Ketorolac 15mg Q6 HR <Wanda Michelle - Last Filed: 05/07/20 13:08> - Patient Data Vitals - Most Recent: Last Vital Signs Temp 36.6 C 05/07/20 12:00 Pulse 72 05/07/20 12:00 Resp 18 05/07/20 12:00 BP 102/58 L 05/07/20 12:00 Pulse Ox 97 05/07/20 12:00 I&O - Last 24 Hours: Intake & Output 05/06/20 05/07/20 05/07/20 22:59 06:59 14:59 Intake Total 1100 650 Output Total 500 1900 Balance 600 -1250 Lab Results Last 24 Hours: Laboratory Results - last 24 hr 05/06/20 05/07/20 05/07/20 Range/Units 12:55 05:04 05:04 WBC 11.53 H (4.0-11.0) K/uL RBC 3.94 L (4.30-5.90) M/uL Hgb 11.6 L (12.0-16.0) g/dL Hct 36.4 (36.0-46.0) % MCV 92.4 (80.0-98.0) fL MCH 29.4 (27.0-32.0) pg MCHC 31.9 (31.0-37.0) g/dL RDW Std Deviation 46.5 (28.0-62.0) fl RDW Coeff of Berta 14 (11.0-15.0) % Plt Count 183 (150-400) K/uL MPV 10.70 (7.40-12.00) fL Neut % (Auto) 83.4 H (48.0-80.0) % Lymph % (Auto) 9.2 L (16.0-40.0) % Dane % (Auto) 7.3 (0.0-15.0) % Eos % (Auto) 0.0 (0.0-7.0) % Baso % (Auto) 0.1 (0.0-1.5) % Neut # (Auto) 9.6 H (1.4-5.7) K/uL Lymph # (Auto) 1.1 (0.6-2.4) K/uL Dane # (Auto) 0.8 (0.0-0.8) K/uL Eos # (Auto) 0.0 (0.0-0.7) K/uL Baso # (Auto) 0.0 (0.0-0.1) K/uL Nucleated RBC % 0.0 /100WBC Nucleated RBCs # 0 K/uL Sodium 135 L (136-145) mmol/L Potassium 4.6 (3.5-5.1) mmol/L Chloride 102 (98-107) mmol/L Carbon Dioxide 24.6 (21.0-32.0) mmol/L BUN 15 (7.0-18.0) mg/dL Creatinine 1.0 (0.6-1.0) mg/dL Est Cr Clr Drug Dosing 73.15 mL/min Estimated GFR (MDRD) > 60.0 ml/min Glucose 110 H (74-106) mg/dL Calcium 8.1 L (8.5-10.1) mg/dL SARS-CoV-2 RNA (CARLOS A) NEGATIVE (NEGATIVE) Jamal Results Last 24 Hours: Microbiology 05/06/20 10:31 Aerobic Blood Culture - Preliminary Blood - Venous - Lab Draw NO GROWTH AFTER 1 DAY Anaerobic Blood Culture - Preliminary NO GROWTH AFTER 1 DAY 05/06/20 10:21 Aerobic Blood Culture - Preliminary Blood - Venous NO GROWTH AFTER 1 DAY Anaerobic Blood Culture - Preliminary NO GROWTH AFTER 1 DAY Med Orders - Current: Current Medications Acetaminophen (Tylenol) 650 mg PO Q4H PRN PRN Reason: Pain Last Admin: 05/07/20 10:10 Dose: 650 mg Documented by: Ceftriaxone Sodium/Dextrose 2 (gm/ Premix) 50 mls @ 100 mls/hr IV Q24H SALVATORE Last Admin: 05/07/20 10:10 Dose: 100 mls/hr Documented by: Sodium Chloride (Normal Saline) 1,000 mls @ 125 mls/hr IV ASDIRECTED [facility] Last Admin: 05/07/20 12:24 Dose: 125 mls/hr Documented by: Ketorolac Tromethamine (Toradol) 15 mg IVPUSH Q6H PRN PRN Reason: Pain Stop: 05/12/20 09:58 Last Admin: 05/07/20 10:13 Dose: 15 mg Documented by: Ondansetron HCl (Zofran) 4 mg IVPUSH Q4H PRN PRN Reason: Nausea/Vomiting Last Admin: 05/07/20 10:12 Dose: 4 mg Documented by: Discontinued Medications Sodium Chloride (Normal Saline) 1,000 mls @ 999 mls/hr IV STAT ONE Stop: 05/06/20 11:08 Last Admin: 05/06/20 10:20 Dose: 999 mls/hr Documented by: Ceftriaxone Sodium/Dextrose 1 (gm/ Premix) 50 mls @ 100 mls/hr IV ONETIME ONE Stop: 05/06/20 11:25 Last Admin: 05/06/20 11:10 Dose: 100 mls/hr Documented by: Sodium Chloride (Normal Saline) 1,000 mls @ 150 mls/hr IV STAT ONE Stop: 05/06/20 18:12 Last Admin: 05/06/20 11:59 Dose: 150 mls/hr Documented by: Ceftriaxone Sodium/Dextrose 1 (gm/ Premix) 50 mls @ 100 mls/hr IV ONETIME ONE Stop: 05/06/20 15:33 Last Admin: 05/06/20 16:42 Dose: 100 mls/hr Documented by: Sodium Chloride (Normal Saline) 1,000 mls @ 125 mls/hr IV ASDIRECTED [facility] Stop: 05/06/20 23:14 Last Admin: 05/06/20 18:25 Dose: 125 mls/hr Documented by: Lactated Ringer's (Ringers, Lactated) 1,000 mls @ 999 mls/hr IV .BOLUS ONE Stop: 05/06/20 16:18 Last Admin: 05/06/20 15:24 Dose: 999 mls/hr Documented by: Sodium Chloride (Normal Saline) 1,000 mls @ 999 mls/hr IV .Bolus ONE Stop: 05/06/20 16:22 Last Admin: 05/06/20 16:44 Dose: Not Given Documented by: Ketorolac Tromethamine (Toradol) 30 mg IVPUSH ONETIME ONE Stop: 05/06/20 10:19 Last Admin: 05/06/20 10:24 Dose: 30 mg Documented by: Morphine Sulfate (Morphine) 2 mg IVPUSH Q4H PRN PRN Reason: Pain (severe 7-10) Last Admin: 05/06/20 21:41 Dose: 2 mg Documented by: Ondansetron HCl (Zofran) 4 mg IVPUSH ONETIME ONE Stop: 05/06/20 10:09 Last Admin: 05/06/20 10:20 Dose: 4 mg Documented by: Ondansetron HCl (Zofran) 4 mg IVPUSH Q6H PRN PRN Reason: Nausea/Vomiting Last Admin: 05/06/20 15:41 Dose: 4 mg Documented by: Sepsis Event Note - Focused Exam Vital Signs: Vital Signs Temp Pulse Resp BP Pulse Ox 05/07/20 12:00 36.6 C 72 18 102/58 L 97 05/07/20 08:00 37.3 C 77 16 115/72 99 05/07/20 03:53 36.5 C 97 16 103/57 L 95 - Plan Plan:: I have seen and evaluated the patient and agree with the residents note unless specified in my note
[2020-05-07] MEDS: Sodium Chloride 0.9% 1,000 ML IV SCH ×2 (12:24→20:44)
[2020-05-08] MEDS: Acetaminophen 325 MG Tab PO PRN ×3 (00:45→14:20)
[2020-05-08] MEDS: Sodium Chloride 0.9% 1,000 ML IV SCH (05:15)
[2020-05-08 06:19] LABS: BLOOD UREA NITROGEN,BUN 9 mg/dL (7.0-18.0); CARBON DIOXIDE,CO2 23.8 mmol/L (21.0-32.0); CHLORIDE,CL 106 mmol/L (98-107); GLUCOSE RANDOM 90 mg/dL (74-106); POTASSIUM,K 4.1 mmol/L (3.5-5.1); SODIUM,NA 138 mmol/L (136-145)
[2020-05-08] MEDS: Ketorolac 15 MG/ML SDV IVPUSH PRN (06:57)
[2020-05-08] MEDS: cefTRIAXone 2 GM in Premix Bag 1 BAG IV SCH (09:15)
--- NOTE | 2020-05-08 16:19 | PCM.DCSUM1 ---
<Rodriguez Rose - Last Filed: 05/08/20 16:40> Discharge Summary - Hospital Course Free Text/Narrative:: 35 year old female admitted for pyelonephritis. Patient presented to the emergency room with a 2-day history of headache, nausea, vomiting. Patient states that she has had a history of UTI's and pyelonephritis. Patient states that she went to go see Dr. Akers and was prescribed Cipro and Zofran which di dnot relieve her symptoms. Patient states that the Zofran did not control her nausea and she was still having symptoms of UTI with ciprofloxacin. At admission patient denied back or flank pain. Patient denied fever or chills. Throughout the course of the patient's admission it was noted that her biggest complaint was chronic headaches and general feeling of weakness and nausea. Patient discharged home on Bactrim antibiotic. Patient advised to follow-up with urology concerning multiple bilateral kidney stones which were seen on a CT abdomen. - Discharge Data Discharge Date: 05/08/20 Discharge Disposition: Home, Self-Care 01 Condition: Good - Referral to Home Health Primary Care Physician: PCP None - Discharge Diagnosis/Problem(s) (1) Pyelonephritis SNOMED Code(s): 69945081 ICD Code: N12 - TUBULO-INTERSTITIAL NEPHRITIS, NOT [facility]PCF ACUTE OR CHRONIC Status: Acute - Discharge Plan Prescriptions/Med Rec: Sulfamethoxazole/Trimethoprim [Bactrim Ds Tablet] 1 each PO BID 11 Days #22 tablet Home Medications: Home Meds Non-Formulary Medication [NF Drug] 1 each PO ASDIRECTED PRN 05/06/20 [History] Sulfamethoxazole/Trimethoprim [Bactrim Ds Tablet] 1 each PO BID 11 Days #22 tablet 05/08/20 [Rx] Patient Handouts: Pyelonephritis, Adult, [id number], Sulfamethoxazole; Trimethoprim, SMX-TMP tablets Referrals: Sharon Brush NP [Nurse Practitioner] - 05/27/20 2:45 pm Jose Harry MD [Ordering Only Provider] - 05/11/20 3:00 pm - Discharge Summary/Plan Comment DC Time >30 min.: Yes - General Info Date of Service: 05/08/20 Subjective Update: Patient denies fever, chills, nausea, vomiting, back pain, flank pain, suprapubic pain, dysuria, hematuria. States that her headache has improved significantly and that she feels up to going home. - Review of Systems General: Denies: Fever, Weakness, Chills Pulmonary: Denies: Shortness of Breath, Pleuritic Chest Pain, Cough Cardiovascular: Denies: Chest Pain, Palpitations, Dyspnea on Exertion Gastrointestinal: Denies: Abdominal Pain, Constipation, Decreased Appetite, Nausea, Vomiting Musculoskeletal: Denies: Back Pain - Patient Data Vitals - Most Recent: Last Vital Signs Temp 97.9 F 05/08/20 11:26 Pulse 68 05/08/20 11:26 Resp 14 05/08/20 11:26 BP 110/61 05/08/20 11:26 Pulse Ox 97 05/08/20 11:26 Weight - Most Recent: 59.012 kg I&O - Last 24 hours: Intake & Output 05/08/20 05/08/20 05/08/20 06:59 14:59 22:59 Intake Total 3943 1030 480 Output Total 1300 1040 Balance 2833 -621 -338 Lab Results - Last 24 hrs: Laboratory Results - last 24 hr 05/08/20 05/08/20 Range/Units 05:15 05:15 WBC 8.33 (4.0-11.0) K/uL RBC 3.86 L (4.30-5.90) M/uL Hgb 11.5 L (12.0-16.0) g/dL Hct 35.5 L (36.0-46.0) % MCV 92.0 (80.0-98.0) fL MCH 29.8 (27.0-32.0) pg MCHC 32.4 (31.0-37.0) g/dL RDW Std Deviation 46.0 (28.0-62.0) fl RDW Coeff of Berta 14 (11.0-15.0) % Plt Count 172 (150-400) K/uL MPV 10.20 (7.40-12.00) fL Neut % (Auto) 72.3 (48.0-80.0) % Lymph % (Auto) 18.0 (16.0-40.0) % Beckham % (Auto) 8.5 (0.0-15.0) % Eos % (Auto) 1.0 (0.0-7.0) % Baso % (Auto) 0.2 (0.0-1.5) % Neut # (Auto) 6.0 H (1.4-5.7) K/uL Lymph # (Auto) 1.5 (0.6-2.4) K/uL Beckham # (Auto) 0.7 (0.0-0.8) K/uL Eos # (Auto) 0.1 (0.0-0.7) K/uL Baso # (Auto) 0.0 (0.0-0.1) K/uL Nucleated RBC % 0.0 /100WBC Nucleated RBCs # 0 K/uL Sodium 138 (136-145) mmol/L Potassium 4.1 (3.5-5.1) mmol/L Chloride 106 (98-107) mmol/L Carbon Dioxide 23.8 (21.0-32.0) mmol/L BUN 9 (7.0-18.0) mg/dL Creatinine 0.7 (0.6-1.0) mg/dL Est Cr Clr Drug Dosing 104.50 mL/min Estimated GFR (MDRD) > 60.0 ml/min Glucose 90 (74-106) mg/dL Calcium 7.9 L (8.5-10.1) mg/dL RAY Results - Last 24 hrs: Microbiology 05/06/20 10:31 Aerobic Blood Culture - Preliminary Blood - Venous - Lab Draw NO GROWTH AFTER 2 DAYS Anaerobic Blood Culture - Preliminary NO GROWTH AFTER 2 DAYS 05/06/20 10:21 Aerobic Blood Culture - Preliminary Blood - Venous NO GROWTH AFTER 2 DAYS Anaerobic Blood Culture - Preliminary NO GROWTH AFTER 2 DAYS 05/06/20 09:52 Urine Culture - Final Urine, Clean Catch MIXED KRISTI >100,000 CFU/ML Med Orders - Current: Current Medications Discontinued Medications Acetaminophen (Tylenol) 650 mg PO Q4H PRN PRN Reason: Pain Last Admin: 05/08/20 14:20 Dose: 650 mg Documented by: Sodium Chloride (Normal Saline) 1,000 mls @ 999 mls/hr IV STAT ONE Stop: 05/06/20 11:08 Last Admin: 05/06/20 10:20 Dose: 999 mls/hr Documented by: Ceftriaxone Sodium/Dextrose 1 (gm/ Premix) 50 mls @ 100 mls/hr IV ONETIME ONE Stop: 05/06/20 11:25 Last Admin: 05/06/20 11:10 Dose: 100 mls/hr Documented by: Sodium Chloride (Normal Saline) 1,000 mls @ 150 mls/hr IV STAT ONE Stop: 05/06/20 18:12 Last Admin: 05/06/20 11:59 Dose: 150 mls/hr Documented by: Ceftriaxone Sodium/Dextrose 1 (gm/ Premix) 50 mls @ 100 mls/hr IV ONETIME ONE Stop: 05/06/20 15:33 Last Admin: 05/06/20 16:42 Dose: 100 mls/hr Documented by: Ceftriaxone Sodium/Dextrose 2 (gm/ Premix) 50 mls @ 100 mls/hr IV Q24H [facility] Last Admin: 05/08/20 09:15 Dose: 100 mls/hr Documented by: Sodium Chloride (Normal Saline) 1,000 mls @ 125 mls/hr IV ASDIRECTED [facility] Stop: 05/06/20 23:14 Last Admin: 05/06/20 18:25 Dose: 125 mls/hr Documented by: Lactated Ringer's (Ringers, Lactated) 1,000 mls @ 999 mls/hr IV .BOLUS ONE Stop: 05/06/20 16:18 Last Admin: 05/06/20 15:24 Dose: 999 mls/hr Documented by: Sodium Chloride (Normal Saline) 1,000 mls @ 999 mls/hr IV .Bolus ONE Stop: 05/06/20 16:22 Last Admin: 05/06/20 16:44 Dose: Not Given Documented by: Sodium Chloride (Normal Saline) 1,000 mls @ 125 mls/hr IV ASDIRECTED [facility] Last Admin: 05/08/20 05:15 Dose: 125 mls/hr Documented by: Ketorolac Tromethamine (Toradol) 30 mg IVPUSH ONETIME ONE Stop: 05/06/20 10:19 Last Admin: 05/06/20 10:24 Dose: 30 mg Documented by: Ketorolac Tromethamine (Toradol) 15 mg IVPUSH Q6H PRN PRN Reason: Pain Stop: 05/12/20 09:58 Last Admin: 05/08/20 06:57 Dose: 15 mg Documented by: Morphine Sulfate (Morphine) 2 mg IVPUSH Q4H PRN PRN Reason: Pain (severe 7-10) Last Admin: 05/06/20 21:41 Dose: 2 mg Documented by: Ondansetron HCl (Zofran) 4 mg IVPUSH ONETIME ONE Stop: 05/06/20 10:09 Last Admin: 05/06/20 10:20 Dose: 4 mg Documented by: Ondansetron HCl (Zofran) 4 mg IVPUSH Q6H PRN PRN Reason: Nausea/Vomiting Last Admin: 05/06/20 15:41 Dose: 4 mg Documented by: Ondansetron HCl (Zofran) 4 mg IVPUSH Q4H PRN PRN Reason: Nausea/Vomiting Last Admin: 05/07/20 17:41 Dose: 4 mg Documented by: - Exam General: Reports: Alert, Oriented Lungs: Reports: Clear to Auscultation, Normal Respiratory Effort Cardiovascular: Reports: Regular Rate, Regular Rhythm GI/Abdominal Exam: Normal Bowel Sounds, Soft, Non-Tender Back Exam: Denies: CVA Tenderness (L), CVA Tenderness (R) <Balaji Ding - Last Filed: 05/08/20 19:27> Discharge Summary - Referral to Home Health Primary Care Physician: PCP None - Patient Data Vitals - Most Recent: Last Vital Signs Temp 36.6 C 05/08/20 11:26 Pulse 68 05/08/20 11:26 Resp 14 05/08/20 11:26 BP 110/61 05/08/20 11:26 Pulse Ox 97 05/08/20 11:26 I&O - Last 24 hours: Intake & Output 05/08/20 05/08/20 05/08/20 06:59 14:59 22:59 Intake Total 3943 1030 480 Output Total 1300 1040 Balance 8210 -142 -067 Lab Results - Last 24 hrs: Laboratory Results - last 24 hr 05/08/20 05/08/20 Range/Units 05:15 05:15 WBC 8.33 (4.0-11.0) K/uL RBC 3.86 L (4.30-5.90) M/uL Hgb 11.5 L (12.0-16.0) g/dL Hct 35.5 L (36.0-46.0) % MCV 92.0 (80.0-98.0) fL MCH 29.8 (27.0-32.0) pg MCHC 32.4 (31.0-37.0) g/dL RDW Std Deviation 46.0 (28.0-62.0) fl RDW Coeff of Berta 14 (11.0-15.0) % Plt Count 172 (150-400) K/uL MPV 10.20 (7.40-12.00) fL Neut % (Auto) 72.3 (48.0-80.0) % Lymph % (Auto) 18.0 (16.0-40.0) % Beckham % (Auto) 8.5 (0.0-15.0) % Eos % (Auto) 1.0 (0.0-7.0) % Baso % (Auto) 0.2 (0.0-1.5) % Neut # (Auto) 6.0 H (1.4-5.7) K/uL Lymph # (Auto) 1.5 (0.6-2.4) K/uL Beckham # (Auto) 0.7 (0.0-0.8) K/uL Eos # (Auto) 0.1 (0.0-0.7) K/uL Baso # (Auto) 0.0 (0.0-0.1) K/uL Nucleated RBC % 0.0 /100WBC Nucleated RBCs # 0 K/uL Sodium 138 (136-145) mmol/L Potassium 4.1 (3.5-5.1) mmol/L Chloride 106 (98-107) mmol/L Carbon Dioxide 23.8 (21.0-32.0) mmol/L BUN 9 (7.0-18.0) mg/dL Creatinine 0.7 (0.6-1.0) mg/dL Est Cr Clr Drug Dosing 104.50 mL/min Estimated GFR (MDRD) > 60.0 ml/min Glucose 90 (74-106) mg/dL Calcium 7.9 L (8.5-10.1) mg/dL RAY Results - Last 24 hrs: Microbiology 05/06/20 10:31 Aerobic Blood Culture - Preliminary Blood - Venous - Lab Draw NO GROWTH AFTER 2 DAYS Anaerobic Blood Culture - Preliminary NO GROWTH AFTER 2 DAYS 05/06/20 10:21 Aerobic Blood Culture - Preliminary Blood - Venous NO GROWTH AFTER 2 DAYS Anaerobic Blood Culture - Preliminary NO GROWTH AFTER 2 DAYS 05/06/20 09:52 Urine Culture - Final Urine, Clean Catch MIXED KRISTI >100,000 CFU/ML Med Orders - Current: Current Medications Discontinued Medications Acetaminophen (Tylenol) 650 mg PO Q4H PRN PRN Reason: Pain Last Admin: 05/08/20 14:20 Dose: 650 mg Documented by: Sodium Chloride (Normal Saline) 1,000 mls @ 999 mls/hr IV STAT ONE Stop: 05/06/20 11:08 Last Admin: 05/06/20 10:20 Dose: 999 mls/hr Documented by: Ceftriaxone Sodium/Dextrose 1 (gm/ Premix) 50 mls @ 100 mls/hr IV ONETIME ONE Stop: 05/06/20 11:25 Last Admin: 05/06/20 11:10 Dose: 100 mls/hr Documented by: Sodium Chloride (Normal Saline) 1,000 mls @ 150 mls/hr IV STAT ONE Stop: 05/06/20 18:12 Last Admin: 05/06/20 11:59 Dose: 150 mls/hr Documented by: Ceftriaxone Sodium/Dextrose 1 (gm/ Premix) 50 mls @ 100 mls/hr IV ONETIME ONE Stop: 05/06/20 15:33 Last Admin: 05/06/20 16:42 Dose: 100 mls/hr Documented by: Ceftriaxone Sodium/Dextrose 2 (gm/ Premix) 50 mls @ 100 mls/hr IV Q24H [facility] Last Admin: 05/08/20 09:15 Dose: 100 mls/hr Documented by: Sodium Chloride (Normal Saline) 1,000 mls @ 125 mls/hr IV ASDIRECTED [facility] Stop: 05/06/20 23:14 Last Admin: 05/06/20 18:25 Dose: 125 mls/hr Documented by: Lactated Ringer's (Ringers, Lactated) 1,000 mls @ 999 mls/hr IV .BOLUS ONE Stop: 05/06/20 16:18 Last Admin: 05/06/20 15:24 Dose: 999 mls/hr Documented by: Sodium Chloride (Normal Saline) 1,000 mls @ 999 mls/hr IV .Bolus ONE Stop: 05/06/20 16:22 Last Admin: 05/06/20 16:44 Dose: Not Given Documented by: Sodium Chloride (Normal Saline) 1,000 mls @ 125 mls/hr IV ASDIRECTED [facility] Last Admin: 05/08/20 05:15 Dose: 125 mls/hr Documented by: Ketorolac Tromethamine (Toradol) 30 mg IVPUSH ONETIME ONE Stop: 05/06/20 10:19 Last Admin: 05/06/20 10:24 Dose: 30 mg Documented by: Ketorolac Tromethamine (Toradol) 15 mg IVPUSH Q6H PRN PRN Reason: Pain Stop: 05/12/20 09:58 Last Admin: 05/08/20 06:57 Dose: 15 mg Documented by: Morphine Sulfate (Morphine) 2 mg IVPUSH Q4H PRN PRN Reason: Pain (severe 7-10) Last Admin: 05/06/20 21:41 Dose: 2 mg Documented by: Ondansetron HCl (Zofran) 4 mg IVPUSH ONETIME ONE Stop: 05/06/20 10:09 Last Admin: 05/06/20 10:20 Dose: 4 mg Documented by: Ondansetron HCl (Zofran) 4 mg IVPUSH Q6H PRN PRN Reason: Nausea/Vomiting Last Admin: 05/06/20 15:41 Dose: 4 mg Documented by: Ondansetron HCl (Zofran) 4 mg IVPUSH Q4H PRN PRN Reason: Nausea/Vomiting Last Admin: 05/07/20 17:41 Dose: 4 mg Documented by: - Free Text/Narrative Note: I have seen and evaluated the patient. I have discussed findings and treatment plan with resident. I agree with the assessment and plan in the following note.
== END 2020-05-08 14:50 | disposition home or self-care (01) ==
LOC: MW.ED 09:23 → MW.MS 12:48
PROVIDERS: ADMIT Student in an Organized Health Care Education/Training Program; ATTEND Student in an Organized Health Care Education/Training Program
DX: N12 Tubulo-interstitial nephritis, not specified as acute or chronic (principal); N39.0 Urinary tract infection, site not specified; Z79.899 Other long term (current) drug therapy; Z20.828 Contact with and (suspected) exposure to other viral communicable diseases
CPT/HCPCS: 36415; 74176; 80048; 80053; 81001; 81025; 83605; 85025; 87040; 87086; 87635; 96361; 96365; 96375; 96376; 99285; A9270; G0378; J0696; J1885; J2270; J2405; J7030; J7120; 99217; 99218; 99225; 99283; U0002

== ENCOUNTER 2020-06-22 19:23 | Emergency (ER) | payer SELFPAY ==
[2020-06-22] MEDS ORDERED: Sodium Chloride 0.9% 10 ML Syringe FLUSH PRN (19:59)
[2020-06-22] MEDS ORDERED: Sodium Chloride 0.9% 2.5 ML Syringe FLUSH PRN (19:59)
[2020-06-22] MEDS ORDERED: Ketorolac 15 MG/ML SDV IVPUSH ONE (20:01)
[2020-06-22] MEDS ORDERED: Sodium Chloride 0.9% 1,000 ML IV ONE (20:01)
[2020-06-22 20:37] LABS: BLOOD UREA NITROGEN,BUN 12 mg/dL (7.0-18.0); CARBON DIOXIDE,CO2 24.1 mmol/L (21.0-32.0); CHLORIDE,CL 96 mmol/L (98-107); GLUCOSE RANDOM 145 mg/dL (74-106); POTASSIUM,K 3.8 mmol/L (3.5-5.1); SODIUM,NA 133 mmol/L (136-145)
[2020-06-22] MEDS ORDERED: cefTRIAXone 1 GM in Premix Bag 1 BAG IV ONE (21:01)
--- NOTE | 2020-06-22 22:32 | CT ---
INDICATION: Fever, status post kidney stone surgery TECHNIQUE: Axial images were obtained from the diaphragm to the pubic symphysis. Reformats were obtained in the coronal and sagittal plane. IV Contrast: None Oral Contrast: None COMPARISON: Abdomen and pelvis CT 05/06/2020 FINDINGS: Lower chest: Unremarkable. Liver: Unremarkable. Normal in size and attenuation. No masses. Gallbladder and bile ducts: Unremarkable. No stones or inflammation. No biliary dilatation. Spleen: Unremarkable. Normal in size without mass. Pancreas: Unremarkable. No mass or inflammation. Adrenal glands: Unremarkable. No nodules. Kidneys: Multiple nonobstructing stones redemonstrated within the right kidney with minimal pelvicaliectasis. There has been interval placement of a right ureteral stent with the upper most aspect of the stent at the right renal pelvis and the lower coil at the level of the bladder. No definite calculi identified along the course of the ureter. Similar findings are demonstrated on the left with a left ureteral stent with the proximal coil of the renal pelvis and distal coil within the bladder. Slight nonspecific fat stranding surrounding kidneys without focal fluid collection. Vasculature: Unremarkable. GI tract: Stomach is unremarkable. No dilated loops of large or small intestine with a large amount of stool within the colon. Pelvis: Coils within the bladder. No bladder wall thickening. Intrauterine device present. Bones: Unremarkable for age. IMPRESSION: 1. Nephrolithiasis with interval placement of bilateral ureteral stents extending from the renal pelvis to the bladder. No definite stones along the course of the ureters. No significant ureteral dilatation. No perinephric fluid collection. Please note that all CT scans at this facility use dose modulation, iterative reconstruction, and/or weight-based dosing when appropriate to reduce radiation dose to as low as reasonably achievable. Dictated by Rajiv Gardner MD @ Jun 22 2020 9:55PM Signed by Dr. Rajiv Gardner @ Jun 22 2020 10:30PM
--- NOTE | 2020-06-22 23:13 | EDM.PDOC ---
ED HPI GENERAL MEDICAL PROBLEM - General Chief Complaint: Fever Stated Complaint: FEVER Time Seen by Provider: 06/22/20 19:30 - History of Present Illness INITIAL COMMENTS - FREE TEXT/NARRATIVE: HISTORY AND PHYSICAL: History of present illness: 35-year-old female who presents ER today secondary to tactile fevers times several days. Patient reports that she had [facility] . Patient reports that on Monday she was feeling well. Patient reports on Monday she started feeling achy and had tactile fevers and slept all day. Patient reports Monday she had fevers to 100.4. P atient reports that she spoke to her PCP earlier today and she was instructed to come to the ER if she has higher fever. Patient reports that she repeated her temperature at 100.9 this evening so she came to the ER for further evaluation. Patient has any recent nausea vomiting diarrhea. Patient denies any chest pain or shortness of breath patient patient denies any abdominal pain. Patient repo rts no significant change in her back discomfort since the procedure. Patient denies any hematuria, dysuria, frequency or urgency. Patient reports normal p.o. intake. Review of systems: As per history of present illness and below otherwise all systems reviewed and negative. Past medical history: As per history of present illness and as reviewed below otherwise noncontributory. Surgical history: As per history of present illness and as reviewed below otherwise noncontributory. Social history: No reported history of drug or alcohol abuse. Family history: As per history of present illness and as reviewed below otherwise noncontributory. Physical exam: Constitutional: Patient is oriented to person, place, and time. Appears well- developed and well-nourished. No distress. HEENT: Moist mucous membranes Head: Normocephalic and atraumatic Eyes: Right eye exhibits no discharge. Left eye exhibits no discharge. No scleral icterus Neck: Normal range of motion. No tracheal deviation present. Cardiovascular: Normal rate and regular rhythm. Pulmonary: Effort normal, no respiratory distress. Abd: Soft, nondistended, no rebound/guarding, no psoas or obturator signs, no tenderness at Mcberney's point, no Ruiz's sign. Pt does not present with an exam that would be consistent with an acute surgical abdomen at this time, nontender to palpation. Patient with mild tenderness palpation to her bilateral lower Flanks. Musculoskeletal: Normal range of motion Neurologic: Alert and oriented to person, place and time. Skin: [place], warm and dry. Psychiatric: Normal mood and affect. Behavior is normal. Judgment and thought content normal. Nursing note and vital signs have been reviewed This patient was seen and evaluated during the 2019 SARS-CoV-2 novel coronavirus pandemic period. Community viral transmission is ongoing at time of this encounter and the emergency department is operating under pandemic response procedures. Diagnostics: CBC, CMP within normal limits. Patient's urinalysis had a significant amount of WBCs greater than RBCs. Patient's CT scan of the abdomen pelvis revealed no significant pathology. Patient did have some mild perinephric stranding in the left kidney. Therapeutics: NSS x1 L, Toradol 15 mg IV, Rocephin 1 g IV. Assessment and plan: This is a 35-year-old female who presents to the ER today secondary to temperature of 100.9 at home and is status post bilateral ureteral stents. Patient's UA is concerning for possible infection although patient's WBCs and RBCs could be a result of the recent procedure itself. Given her fever of 100.9, patient be given a dose of IV Rocephin and will be discharged home with Omnicef and instructed to follow-up with her urologist as scheduled on Monday. Patient is to return to the ER sooner if she has persistent fever, worsening pain or any new concerns. Reassessment at the time of disposition demonstrates that the patient is in no acute distress. The patient has remained stable throughout the entire ED visit and is without objective evidence for acute process requiring urgent intervention or hospitalization. The patient is stable for discharge, counseling is provided as documented above, discussed symptomatic treatment and specific conditions for return. I have spoken with the patient/caregiver and discussed todays findings, in addition to providing specific details for the plan of care. Questions are answered and there is agreement with the plan. Definitive disposition and diagnosis as appropriate pending reevaluation and review of above. Headache Pain Score (Numeric/FACES): 3 - Related Data Allergies Allergy/AdvReac Type Severity Reaction Status Date / Time No Known Allergies Allergy Verified 06/22/20 19:36 Home Meds: Home Meds Non-Formulary Medication [NF Drug] 1 each PO ASDIRECTED PRN 05/06/20 [History] Cefdinir 300 mg PO BID 10 Days #20 capsule 06/22/20 [Rx] Past Medical History - Past Health History Medical/Surgical History: Denies Medical/Surgical History HEENT History: Reports: None Cardiovascular History: Reports: None Respiratory History: Reports: None Gastrointestinal History: Reports: Other (See Below) Other Gastrointestinal History: constipation with Genitourinary History: Reports: Pyelonephritis Other Genitourinary History: current UTI, pyelonephritis, flank pain PHARMACY INFORMATICIST History: Reports: Musculoskeletal History: Reports: None Neurological History: Reports: None Psychiatric History: Reports: None Endocrine/Metabolic History: Reports: None Hematologic History: Reports: None Immunologic History: Reports: None Oncologic (Cancer) History: Reports: None Dermatologic History: Reports: None - Infectious Disease History Infectious Disease History: Reports: Chicken Pox - Past Surgical History Female Surgical History: Reports: Kidney stone extraction, Other (See Below) Other Female Surgeries/Procedures: Kidney infection 07/2018 Social & Family History - Family History Family Medical History: No Pertinent Family History - Tobacco Use Tobacco Use Status *Q: Never Tobacco User Second Hand Smoke Exposure: No - Caffeine Use Caffeine Use: Reports: Coffee - Recreational Drug Use Recreational Drug Use: No ED ROS GENERAL - Review of Systems Review Of Systems: See Below ED EXAM, GENERAL - Physical Exam Exam: See Below Course - Vital Signs Last Recorded V/S: Last Vital Signs Temp 97.7 F 06/22/20 19:29 Pulse 73 06/22/20 22:06 Resp 18 06/22/20 22:06 BP 116/70 06/22/20 22:06 Pulse Ox 96 06/22/20 22:06 - Orders/Labs/Meds Orders: Active Orders 24 hr Category Date Time Status Sodium Chloride 0.9% [Saline Flush] Med 06/22/20 19:59 Active 10 ml FLUSH ASDIRECTED PRN Sodium Chloride 0.9% [Saline Flush] Med 06/22/20 19:59 Active 2.5 ml FLUSH ASDIRECTED PRN Saline Lock Insert [OM.PC] Stat Oth 06/22/20 19:59 Ordered Medication Orders Sodium Chloride (Saline Flush) 10 ml FLUSH ASDIRECTED PRN PRN Reason: Keep Vein Open Last Admin: 06/22/20 20:17 Dose: 10 ml Documented by: MG Sodium Chloride (Saline Flush) 2.5 ml FLUSH ASDIRECTED PRN PRN Reason: Keep Vein Open Last Admin: 06/22/20 20:19 Dose: 2.5 ml Documented by: MG Labs: Laboratory Tests 06/22/20 06/22/20 06/22/20 Range/Units 20:04 20:04 20:09 WBC 10.67 (4.0-11.0) K/uL RBC 4.59 (4.30-5.90) M/uL Hgb 13.8 (12.0-16.0) g/dL Hct 42.4 (36.0-46.0) % MCV 92.4 (80.0-98.0) fL MCH 30.1 (27.0-32.0) pg MCHC 32.5 (31.0-37.0) g/dL RDW Std Deviation 46.3 (28.0-62.0) fl RDW Coeff of Berta 14 (11.0-15.0) % Plt Count 229 (150-400) K/uL MPV 9.90 (7.40-12.00) fL Neut % (Auto) 71.1 (48.0-80.0) % Lymph % (Auto) 15.9 L (16.0-40.0) % [place] % (Auto) 11.7 (0.0-15.0) % Eos % (Auto) 1.1 (0.0-7.0) % Baso % (Auto) 0.2 (0.0-1.5) % Neut # (Auto) 7.6 H (1.4-5.7) K/uL Lymph # (Auto) 1.7 (0.6-2.4) K/uL [place] # (Auto) 1.3 H (0.0-0.8) K/uL Eos # (Auto) 0.1 (0.0-0.7) K/uL Baso # (Auto) 0.0 (0.0-0.1) K/uL Nucleated RBC % 0.0 /100WBC Nucleated RBCs # 0 K/uL Sodium (136-145) mmol/L Potassium (3.5-5.1) mmol/L Chloride (98-107) mmol/L Carbon Dioxide (21.0-32.0) mmol/L BUN (7.0-18.0) mg/dL Creatinine (0.6-1.0) mg/dL Est Cr Clr Drug Dosing mL/min Estimated GFR (MDRD) ml/min Glucose (74-106) mg/dL Calcium (8.5-10.1) mg/dL Total Bilirubin (0.2-1.0) mg/dL AST (15-37) IU/L ALT (14-63) IU/L Alkaline Phosphatase (46-116) U/L Total Protein (6.4-8.2) g/dL Albumin (3.4-5.0) g/dL Globulin (2.6-4.0) g/dL Albumin/Globulin Ratio (0.9-1.6) Urine Color ORANGE Urine Appearance HAZY Urine pH 6.0 (5.0-8.0) Ur Specific [place] 1.010 (1.001-1.035) Urine Protein 100 H (NEGATIVE) mg/dL Urine Glucose (UA) 100 H (NEGATIVE) mg/dL Urine Ketones 15 H (NEGATIVE) mg/dL Urine Occult Blood LARGE H (NEGATIVE) Urine Nitrite POSITIVE H (NEGATIVE) Urine Bilirubin NEGATIVE (NEGATIVE) Urine Urobilinogen 4.0 H (<2.0) EU/dL Ur Leukocyte Esterase LARGE H (NEGATIVE) Urine RBC 6-10 (0-2/HPF) Urine WBC 15-20 (0-5/HPF) Ur Epithelial Cells OCCASIONAL (NONE-FEW) Urine Bacteria 3+ H (NEGATIVE) Urinalysis Comment Urine HCG, Qual NEGATIVE (NEGATIVE) 06/22/20 Range/Units 20:09 WBC (4.0-11.0) K/uL RBC (4.30-5.90) M/uL Hgb (12.0-16.0) g/dL Hct (36.0-46.0) % MCV (80.0-98.0) fL MCH (27.0-32.0) pg MCHC (31.0-37.0) g/dL RDW Std Deviation (28.0-62.0) fl RDW Coeff of Berta (11.0-15.0) % Plt Count (150-400) K/uL MPV (7.40-12.00) fL Neut % (Auto) (48.0-80.0) % Lymph % (Auto) (16.0-40.0) % [place] % (Auto) (0.0-15.0) % Eos % (Auto) (0.0-7.0) % Baso % (Auto) (0.0-1.5) % Neut # (Auto) (1.4-5.7) K/uL Lymph # (Auto) (0.6-2.4) K/uL [place] # (Auto) (0.0-0.8) K/uL Eos # (Auto) (0.0-0.7) K/uL Baso # (Auto) (0.0-0.1) K/uL Nucleated RBC % /100WBC Nucleated RBCs # K/uL Sodium 133 L (136-145) mmol/L Potassium 3.8 (3.5-5.1) mmol/L Chloride 96 L (98-107) mmol/L Carbon Dioxide 24.1 (21.0-32.0) mmol/L BUN 12 (7.0-18.0) mg/dL Creatinine 0.8 (0.6-1.0) mg/dL Est Cr Clr Drug Dosing 84.34 mL/min Estimated GFR (MDRD) > 60.0 ml/min Glucose 145 H (74-106) mg/dL Calcium 9.4 (8.5-10.1) mg/dL Total Bilirubin 0.7 (0.2-1.0) mg/dL AST 26 (15-37) IU/L ALT 35 (14-63) IU/L Alkaline Phosphatase 68 (46-116) U/L Total Protein 8.8 H (6.4-8.2) g/dL Albumin 3.8 (3.4-5.0) g/dL Globulin 5.0 H (2.6-4.0) g/dL Albumin/Globulin Ratio 0.8 L (0.9-1.6) Urine Color Urine Appearance Urine pH (5.0-8.0) Ur Specific [place] (1.001-1.035) Urine Protein (NEGATIVE) mg/dL Urine Glucose (UA) (NEGATIVE) mg/dL Urine Ketones (NEGATIVE) mg/dL Urine Occult Blood (NEGATIVE) Urine Nitrite (NEGATIVE) Urine Bilirubin (NEGATIVE) Urine Urobilinogen (<2.0) EU/dL Ur Leukocyte Esterase (NEGATIVE) Urine RBC (0-2/HPF) Urine WBC (0-5/HPF) Ur Epithelial Cells (NONE-FEW) Urine Bacteria (NEGATIVE) Urinalysis Comment Urine HCG, Qual (NEGATIVE) Meds: Medications Generic Name Dose Route Start Last Admin Trade Name Freq PRN Reason Stop Dose Admin Sodium Chloride 10 ml 06/22/20 19:59 06/22/20 20:17 Saline Flush FLUSH 10 ml ASDIRECTED PRN Administration Keep Vein Open Sodium Chloride 2.5 ml 06/22/20 19:59 06/22/20 20:19 Saline Flush FLUSH 2.5 ml ASDIRECTED PRN Administration Keep Vein Open Discontinued Medications Generic Name Dose Route Start Last Admin Trade Name Freq PRN Reason Stop Dose Admin Sodium Chloride 1,000 mls @ 999 mls/hr 06/22/20 20:01 06/22/20 20:14 Normal Saline IV 06/22/20 21:01 999 mls/hr .Bolus ONE Administration Ceftriaxone Sodium/Dextrose 1 50 mls @ 100 mls/hr 06/22/20 21:01 06/22/20 21:32 gm/ Premix IV 06/22/20 21:30 100 mls/hr ONETIME ONE Administration Ketorolac Tromethamine 15 mg 06/22/20 20:01 06/22/20 20:14 Toradol IVPUSH 06/22/20 20:02 15 mg ONETIME ONE Administration Departure - Departure Time of Disposition: 23:12 Disposition: Home, Self-Care 01 Condition: Good Clinical Impression: Fever, S/P ureteral stent placement Urinary tract infection Qualifiers: Urinary tract infection type: site unspecified Hematuria presence: with hematuria Qualified Code(s): N39.0 - Urinary tract infection, site not specified; R31.9 - Hematuria, unspecified - Discharge Information Instructions: Fever, Adult, Antibiotic Medicine, Adult, [id number], Urinary Tract Infection, Adult, Ureteral Stent Implantation, Care After Referrals: Sharon Brush COMIC ARTIST [Primary Care Provider] - Additional Instructions: Your seen and evaluated in the ER today secondary to your fevers. This is concerning since you had a recent ureteral stent placement. Your urine does look like you might have an infection in your urinary tract. The CT scan of your abdomen pelvis looked normal except for some inflammation around your left kidney. Given the inflammation, your fever, and the abnormal urinalysis, he will be started on antibiotics. You have been given a dose of IV Rocephin in the ED and you will be discharged home with oral antibiotics to take. Please make an appointment to see your doctor as scheduled on Monday. Return to the ER sooner if you have any new or concerning symptoms. The following information is given to patients seen in the emergency department who are being discharged to home. This information is to outline your options for follow-up care. We provide all patients seen in our emergency department with a follow-up referral. The need for follow-up, as well as the timing and circumstances, are variable depending upon the specifics of your emergency department visit. If you don't have a primary care physician on staff, we will provide you with a referral. We always advise you to contact your personal physician following an emergency department visit to inform them of the circumstance of the visit and for follow-up with them and/or the need for any referrals to a consulting specialist. The emergency department will also refer you to a specialist when appropriate. This referral assures that you have the opportunity for follow-up care with a specialist. All of these measure are taken in an effort to provide you with optimal care, which includes your follow-up. Under all circumstances we always encourage you to contact your private physician who remains a resource for coordinating your care. When calling for follow-up care, please make the office aware that this follow-up is from your recent emergency room visit. If for any reason you are refused follow-up, please contact the [facility] Emergency Department at and asked to speak to the emergency department charge nurse. [facility] - [facility] [address] [place] [address] [id number] [address] [id number] Sepsis Event Note (ED) - Evaluation Sepsis Screening Result: Possible Sepsis Risk - Focused Exam Vital Signs: Vital Signs Temp Pulse Resp BP Pulse Ox 06/22/20 22:06 73 18 116/70 96 06/22/20 19:29 97.7 F 104 H 14 117/69 96 - My Orders Last 24 Hours: My Active Orders 06/22/20 19:59 Sodium Chloride 0.9% [Saline Flush] 10 ml FLUSH ASDIRECTED PRN Sodium Chloride 0.9% [Saline Flush] 2.5 ml FLUSH ASDIRECTED PRN Saline Lock Insert [OM.PC] Stat - Assessment/Plan Last 24 Hours: My Active Orders 06/22/20 19:59 Sodium Chloride 0.9% [Saline Flush] 10 ml FLUSH ASDIRECTED PRN Sodium Chloride 0.9% [Saline Flush] 2.5 ml FLUSH ASDIRECTED PRN Saline Lock Insert [OM.PC] Stat
== END 2020-06-22 23:23 | disposition home or self-care (01) ==
LOC: MW.ED 19:23
DX: N39.0 Urinary tract infection, site not specified (principal); R31.9 Hematuria, unspecified; Z96.0 Presence of urogenital implants
CPT/HCPCS: 36415; 74176; 74176-26; 80053; 81001; 81025; 85025; 96365; 96375; 99283; 99284-25; J0696; J1885; J7030

== ENCOUNTER 2022-02-07 07:16 | Day surgery (SDC) | payer BC, OTHER ==
[~2022-02-07 07:16] MED LIST: Lactated Ringers 1,000 ML IV SCH; Sodium Chloride 0.9% 10 ML Syringe FLUSH PRN; Sodium Chloride 0.9% 2.5 ML Syringe FLUSH PRN; Sodium Chloride 0.9% 20 ML SDV IV PRN
[2022-02-07] MEDS ORDERED: fentaNYL 250 MCG/5 ML SDV ONE (07:22)
[2022-02-07] MEDS ORDERED: fentaNYL 100 MCG/2 ML SDV ONE ×2 (07:22→09:56)
[2022-02-07] MEDS ORDERED: Propofol 200 MG/20 ML SDV ONE ×2 (07:22→10:31)
[2022-02-07] MEDS ORDERED: Ropivacaine 0.5% 5 MG/ML 30 ML SDV ONE (07:32)
[2022-02-07] MEDS ORDERED: ceFAZolin 2 GM in Premix Bag 1 BAG IV ONE (08:00)
[2022-02-07] MEDS ORDERED: Bupivacaine 0.5% 30 ML SDV ONE (08:39)
[2022-02-07] MEDS ORDERED: Octyl 2-Cyanoacrylate 1 g/1 mL 1 APPLIC PEN ONE (09:19)
[2022-02-07] MEDS ORDERED: HYDROmorphone 1 MG/ML Syringe IVPUSH PRN (09:30)
[2022-02-07] MEDS ORDERED: Morphine 4 MG/ML VIAL IVPUSH PRN (09:30)
[2022-02-07] MEDS ORDERED: Metoclopramide 10 MG/2 ML SDV IVPUSH PRN (09:30)
[2022-02-07] MEDS ORDERED: Albuterol 0.083% 2.5 MG/3 ML Neb Soln NEB PRN (09:30)
[2022-02-07] MEDS ORDERED: Naloxone 0.4 MG/ML SDV IVPUSH PRN (09:30)
[2022-02-07] MEDS ORDERED: Ondansetron 4 MG/2 ML SDV IVPUSH PRN ×2 (09:30→16:45)
[2022-02-07] MEDS ORDERED: Ketorolac 30 MG/ML SDV ONE (09:57)
[2022-02-07] MEDS ORDERED: Rocuronium Bromide 50 MG/5 ML Syringe ONE (09:57)
[2022-02-07] MEDS ORDERED: Sugammadex Sodium 200 MG/2 ML VIAL ONE (09:57)
[2022-02-07] MEDS ORDERED: Glycopyrrolate 0.2 MG/ML SDV ONE (09:57)
[2022-02-07] MEDS ORDERED: Ondansetron 4 MG/2 ML SDV ONE (09:57)
[2022-02-07] MEDS ORDERED: HYDROmorphone 1 MG/ML Syringe ONE ×2 (10:49→10:54)
[2022-02-07] MEDS: fentaNYL 50 MCG/ML SDV IVPUSH PRN ×2 (11:03→11:08)
[2022-02-07] MEDS ORDERED: oxyCODONE 5 MG Tab PO ONE (15:15)
[2022-02-07] MEDS ORDERED: oxyCODONE 5 MG Tab ONE (15:18)
[2022-02-07] MEDS ORDERED: diphenhydrAMINE 50 MG/ML SDV IVPUSH ONE (16:01)
[2022-02-07] MEDS ORDERED: diphenhydrAMINE 50 MG/ML SDV ONE (16:04)
[2022-02-07] MEDS ORDERED: Scopolamine 1.5 MG Transdermal Patch TOP ONE (16:45)
[2022-02-07] MEDS ORDERED: Acetaminophen 325 MG Tab PO PRN (16:45)
[2022-02-07] MEDS ORDERED: Promethazine 25 MG/ML SDV IM PRN (16:45)
[2022-02-07] MEDS ORDERED: Ketorolac 30 MG/ML SDV IVPUSH ONE (16:45)
[2022-02-07] MEDS ORDERED: Ketorolac 30 MG/ML SDV IVPUSH PRN (16:45)
== END 2022-02-07 17:10 | disposition home or self-care (01) ==
LOC: MW.SDS 07:16
PROVIDERS: ATTEND Surgery
DX: K42.9 Umbilical hernia without obstruction or gangrene (principal); N81.2 Incomplete uterovaginal prolapse; N81.6 Rectocele; Z79.899 Other long term (current) drug therapy; Z79.1 Long term (current) use of non-steroidal anti-inflammatories (NSAID); Z98.890 Other specified postprocedural states
CPT/HCPCS: 36415; 49585; 57250; 81025; 85027; A9270; J1200; J1885; J2405; J2704; J2795; J3010; J3490; J7120; 00750; 64488